=== PATIENT | female | born 1965 | race Caucasian/White ===

== ENCOUNTER 2017-10-29 23:30 | Emergency (ER) | payer MEDICARE, MEDICAID ==
[~2017-10-29] VITALS: Ht 167.6 cm; Wt 90.5 kg
[~2017-10-29 23:30] MED LIST: ALBU8.5H4 IH; BACL10TA2 PO; DILT240C90 PO; DOCU100C23 PO; FLUT16SP INH; HYDR-565 PO; LISI-222 PO; LORA-512 PO; METO50TA16 PO; NORT50CA PO; OMEP20TA5 PO; POLY454P5 PO; RIVA20TA PO
[2017-10-30] MEDS ORDERED: AMOX-101 PO (00:28)
[2017-10-30] MEDS ORDERED: NAPR-1154 PO (00:28)
[2017-10-30] MEDS ORDERED: ketorolac trometh inj. 60 MG/2 ML VIAL IM ONE (00:30)
[2017-10-30 00:45] VITALS: BP 143/100
== END 2017-10-30 00:52 | disposition home or self-care (01) ==
LOC: ER 23:31
DX: M72.2 Plantar fascial fibromatosis (principal); H66.92 Otitis media, unspecified, left ear; G89.29 Other chronic pain; I10 Essential (primary) hypertension; I48.91 Unspecified atrial fibrillation; J45.909 Unspecified asthma, uncomplicated; Z79.899 Other long term (current) drug therapy; Z88.5 Allergy status to narcotic agent; Z88.8 Allergy status to other drugs, medicaments and biological substances
CPT/HCPCS: 96372; 99283; J1885

== ENCOUNTER 2018-01-26 00:20 | Inpatient (IN) | payer MEDICARE, MEDICAID ==
[2018-01-26] VITALS (9 sets, daily range): BP systolic 122–147; BP diastolic 68–97
[~2018-01-26] VITALS: Ht 167.6 cm; Wt 90.9 kg
[~2018-01-26 00:20] MED LIST changes: +NAPR-1154 PO
[2018-01-26 00:49] LABS: BASOPHILS % (AUTO) 0.5 % (0-1); EOSINOPHILS # (AUTO) 0.2 X10'3 (0-0.9); HEMATOCRIT 36.8 % (35.0-45.0); HEMOGLOBIN 11.6 g/dl (12.0-16.0); LYMPHOCYTES % (AUTO) 36.6 % (21-51); MEAN CORPUSCULAR HEMOGLOBIN 19.6 PG (27.0-31.0); MEAN CORPUSCULAR HGB CONC 31.4 % (33.0-36.5); MEAN CORPUSCULAR VOLUME 62.3 FL (78-98); MEAN PLATELET VOLUME 8.7 FL (7.4-10.4); MONOCYTES # (AUTO) 0.4 X10'3 (0-0.9); MONOCYTES % (AUTO) 5.5 % (2-12); NEUTROPHILS # (AUTO) 4.5 X10'3 (1.8-7.7); NEUTROPHILS % (AUTO) 54.4 % (42-75); PLATELET COUNT 136 X10'3 (140-440); RED BLOOD COUNT 5.91 X10'6 (4.20-5.60); RED CELL DISTRIBUTION WIDTH 14.6 % (11.5-14.5); WHITE BLOOD COUNT 8.1 X10'3 (4.5-11.0)
[2018-01-26] MEDS ORDERED: digoxin 250mcg/ml 2ml ampule IV ONE (00:50)
[2018-01-26 01:01] LABS: PARTIAL THROMBOPLASTIN TIME 26 SECONDS (22-32); PROTHROMBIN TIME 10.4 SECONDS (9.0-12.0)
[2018-01-26 01:05] LABS: ALANINE AMINOTRANSFERASE 18 U/L (12-78); ALBUMIN 4.1 G/DL (3.4-5.0); ALBUMIN/GLOBULIN RATIO 1.1 (1.1-1.5); ALKALINE PHOSPHATASE 59 IU/L (46-116); ANION GAP 11 (8-16); ASPARTATE AMINO TRANSFERASE 22 U/L (10-37); BILIRUBIN,TOTAL 0.7 MG/DL (0.1-1.0); BLOOD UREA NITROGEN 9 MG/DL (7-18); BUN/CREATININE RATIO 10.8 (6.6-38.0); CALCIUM 8.7 MG/DL (8.5-10.1); CHLORIDE 105 MMOL/L (99-107); CREATININE 0.83 MG/DL (0.40-0.90); GLUCOSE 125 MG/DL (70-104); POTASSIUM 3.8 MMOL/L (3.5-5.1); SODIUM 143 MMOL/L (135-145); TOTAL CARBON DIOXIDE 26.8 MMOL/L (24-32); TOTAL PROTEIN 7.7 G/DL (6.4-8.2); eGFR 72 ML/MIN
[2018-01-26 01:10] LABS: ANISOCYTOSIS 1+; HYPOCHROMASIA 2+; MICROCYTOSIS 3+; PLATELET ESTIMATE DECREASED; POLYCHROMASIA FEW; TARGET CELLS FEW
[2018-01-26 01:11] LABS: ELLIPTOCYTES FEW; TEAR DROP CELLS FEW
[2018-01-26] MEDS ORDERED: nitroGLYCERIN 0.2mg/hour patch TD ONE (01:35)
[2018-01-26] MEDS ORDERED: docusate sod 100mg capsule PO PRN (01:50)
[2018-01-26] MEDS ORDERED: magnesium 2GM in 50ml NS 50 ML IV PRN (01:55)
[2018-01-26] MEDS ORDERED: ondansetron/PF 4mg/2ml inj IV PRN (01:55)
[2018-01-26] MEDS ORDERED: potassium Cl 20 mEq SR tablet PO PRN ×2 (01:55)
[2018-01-26] MEDS ORDERED: magnesium 4gm in 100ml NS 100 ML IV PRN (01:55)
[2018-01-26] MEDS ORDERED: potassium Cl 40MEQ/NS 500ml 500 ML IV PRN ×2 (01:55)
[2018-01-26] MEDS ORDERED: magnesium hydroxide 30ml (MOM) UD suspension PO PRN (01:55)
[2018-01-26] MEDS ORDERED: mag hydrox/Alum hydrox/simeth 30ml oral suspension PO PRN (01:55)
[2018-01-26] MEDS ORDERED: acetaminophen 325mg tablet PO PRN (01:55)
[2018-01-26] MEDS ORDERED: nitroGLYCERIN 0.4mg SUBLingual tab SL PRN (02:05)
[2018-01-26] MEDS ORDERED: regadenoson 0.4mg/5ml syringe IV ONE ×3 (02:05→09:25)
[2018-01-26] MEDS ORDERED: aminophylline 250mg/10ml inj. IV PRN (02:05)
[2018-01-26] MEDS ORDERED: acetaminophen 325mg tablet PO ONE (03:10)
[2018-01-26 06:45] LABS: CHOL/HDL RATIO 3.5 (0.00-4.99); CHOLESTEROL 133 MG/DL (0-200); HDL CHOLESTEROL 38 MG/DL (35-60); LDL CHOLESTEROL 64 MG/DL (50-100); TRIGLYCERIDES 194 MG/DL (20-135)
[2018-01-26] MEDS ORDERED: pantoprazole 40mg Tablet.DR PO SCH (07:30)
[2018-01-26] MEDS ORDERED: fluticasone nasal spray 16GM bottle NS SCH (08:00)
[2018-01-26] MEDS ORDERED: loratadine 10mg tablet PO SCH (08:00)
[2018-01-26] MEDS ORDERED: K and/or MAG REPLACEMENT MC SCH (08:00)
[2018-01-26] MEDS ORDERED: rivaroxaban 20mg tablet PO SCH (08:00)
[2018-01-26] MEDS ORDERED: diltiazem CD 120mg capsule (once-daily) PO SCH (08:00)
[2018-01-26] MEDS ORDERED: lisinopril 5mg tablet PO SCH (08:00)
[2018-01-26] MEDS ORDERED: polyethylene glycol 3350 17gm powd pack PO SCH (08:00)
[2018-01-26] MEDS ORDERED: baclofen 10mg tablet PO SCH (08:00)
[2018-01-26] MEDS ORDERED: aminophylline inj. 0 ML IV ONE (09:12)
[2018-01-26] MEDS ORDERED: nortriptyline 25mg capsule PO SCH (21:00)
== END 2018-01-26 14:50 | disposition home or self-care (01) | DRG 206 ==
LOC: ER 00:20 → ED HOLD 01:53 → EDBEDREQ 11:37
PROVIDERS: ADMIT Family Medicine; ATTEND Internal Medicine
PROC: 4A02XM4 Measurement of Cardiac Total Activity, External Approach (ICD-10-PCS; principal; 2018-01-26)
PROC: 3E073KZ Introduction of Other Diagnostic Substance into Coronary Artery, Percutaneous Approach (ICD-10-PCS; 2018-01-26)
DX: M94.0 Chondrocostal junction syndrome [Tietze] (principal); I48.91 Unspecified atrial fibrillation; I10 Essential (primary) hypertension; G43.909 Migraine, unspecified, not intractable, without status migrainosus; G89.29 Other chronic pain; J45.909 Unspecified asthma, uncomplicated; Z98.1 Arthrodesis status; Z88.8 Allergy status to other drugs, medicaments and biological substances; Z88.6 Allergy status to analgesic agent; Z79.899 Other long term (current) drug therapy; Z79.01 Long term (current) use of anticoagulants; Z82.49 Family history of ischemic heart disease and other diseases of the circulatory system
CPT/HCPCS: 36415; 71045; 78452; 80053; 80061; 84484; 85025; 85610; 85730; 87070; 93017; 93306; A9500; J0280; J1160; J2405

== ENCOUNTER 2018-02-28 13:59 | Day surgery (SDC) | payer MEDICARE, MEDICAID ==
[2018-02-24 11:42] LABS: BASOPHILS % (AUTO) 0.5 % (0-1); EOSINOPHILS # (AUTO) 0.2 X10'3 (0-0.9); EOSINOPHILS % (AUTO) 3.8 % (0-6); HEMATOCRIT 33.4 % (35.0-45.0); HEMOGLOBIN 10.5 g/dl (12.0-16.0); LYMPHOCYTES # (AUTO) 1.6 X10'3 (1.1-4.8); LYMPHOCYTES % (AUTO) 33.6 % (21-51); MEAN CORPUSCULAR HEMOGLOBIN 19.7 PG (27.0-31.0); MEAN CORPUSCULAR HGB CONC 31.3 % (33.0-36.5); MEAN CORPUSCULAR VOLUME 62.8 FL (78-98); MEAN PLATELET VOLUME 9.3 FL (7.4-10.4); MONOCYTES # (AUTO) 0.2 X10'3 (0-0.9); MONOCYTES % (AUTO) 4.8 % (2-12); NEUTROPHILS # (AUTO) 2.7 X10'3 (1.8-7.7); NEUTROPHILS % (AUTO) 57.3 % (42-75); PLATELET COUNT 132 X10'3 (140-440); RED BLOOD COUNT 5.32 X10'6 (4.20-5.60); RED CELL DISTRIBUTION WIDTH 17.4 % (11.5-14.5); WHITE BLOOD COUNT 4.8 X10'3 (4.5-11.0)
[2018-02-24 11:51] LABS: ALBUMIN 4.1 G/DL (3.4-5.0); ANION GAP 10 (8-16); BLOOD UREA NITROGEN 11 MG/DL (7-18); BUN/CREATININE RATIO 17.2 (6.6-38.0); CALCIUM 8.7 MG/DL (8.5-10.1); CHLORIDE 106 MMOL/L (99-107); CREATININE 0.64 MG/DL (0.40-0.90); GLUCOSE 97 MG/DL (70-104); POTASSIUM 3.9 MMOL/L (3.5-5.1); SODIUM 144 MMOL/L (135-145); TOTAL CARBON DIOXIDE 27.7 MMOL/L (24-32); eGFR > 90 ML/MIN
[2018-02-24 11:52] LABS: INR 1.2 INR; PARTIAL THROMBOPLASTIN TIME 30 SECONDS (22-32); PROTHROMBIN TIME 12.1 SECONDS (9.0-12.0)
[2018-02-24 12:02] LABS: PLATELET ESTIMATE DECREASED
[2018-02-24 12:03] LABS: ANISOCYTOSIS 1+; MICROCYTOSIS 2+
[2018-02-24 12:04] LABS: ELLIPTOCYTES FEW; HYPOCHROMASIA 1+; POLYCHROMASIA FEW; SCHISTOCYTES FEW; TARGET CELLS FEW
[2018-02-28] VITALS (11 sets, daily range): BP systolic 117–146; BP diastolic 65–94
[~2018-02-28] VITALS: Ht 167.6 cm; Wt 92.7 kg
[2018-02-28] MEDS ORDERED: diphenhydrAMINE 25mg capsule PO PRN (14:20)
[2018-02-28] MEDS ORDERED: LORazepam 0.5 MG tablet PO PRN (14:20)
[2018-02-28] MEDS ORDERED: FERR325T28 PO (14:39)
[2018-02-28] MEDS ORDERED: ESTR1PAT96 TOP (14:39)
[2018-02-28] MEDS ORDERED: SUMA25TA35 PO (14:39)
[2018-02-28] MEDS ORDERED: ZOLP5TAB8 PO (14:39)
[2018-02-28] MEDS ORDERED: CYCL1DRO EACHEYE (14:39)
[2018-02-28] MEDS: normal saline 1000ml 1,000 ML IV SCH ×2 (14:54→21:33)
[2018-02-28] MEDS ORDERED: LIDOcaine 1% w/EPI 1:100,000 30ml vial (MDV) ONE (16:26)
[2018-02-28] MEDS ORDERED: iohexol 350MG/ML 100ml bottle IV ONE (16:27)
[2018-02-28] MEDS ORDERED: midazolam 2 mg/2 ml injection ONE ×2 (16:50→17:16)
[2018-02-28] MEDS ORDERED: fentaNYL/PF 50MCG/1 ML 2ML syringe ONE (16:50)
[2018-02-28] MEDS ORDERED: HYDROcodone/acetaminophen 10/325mg tab PO PRN (17:55)
[2018-02-28] MEDS ORDERED: proCHLORperazine 10 MG/2 ml inj IV PRN (17:55)
[2018-02-28] MEDS ORDERED: ondansetron/PF 4mg/2ml inj IV PRN (17:55)
[2018-02-28] MEDS ORDERED: OXAZEpam 15mg capsule PO PRN (17:55)
[2018-02-28] MEDS ORDERED: SUMAtriptan 25 MG tablet PO PRN (20:50)
[2018-02-28] MEDS ORDERED: docusate sod 100mg capsule PO PRN (20:55)
[2018-02-28] MEDS ORDERED: albuterol 2.5 MG/3 ML nebule NEB PRN (20:55)
[2018-02-28] MEDS ORDERED: zolpidem 5mg tablet PO PRN (20:55)
[2018-02-28] MEDS ORDERED: ESTRADIOL TP SCH (21:05)
[2018-02-28] MEDS: baclofen 10mg tablet PO SCH (21:36)
[2018-02-28] MEDS: HYDROcodone/acetaminophen 5mg/325mg tablet PO PRN (21:37)
[2018-03-01 03:00] VITALS: BP 131/80
[2018-03-01 06:00] VITALS: BP 166/106
[2018-03-01] MEDS: HYDROcodone/acetaminophen 5mg/325mg tablet PO PRN (06:51)
[2018-03-01] MEDS: baclofen 10mg tablet PO SCH (07:04)
[2018-03-01] MEDS ORDERED: pantoprazole 40mg Tablet.DR PO SCH (07:30)
[2018-03-01] MEDS ORDERED: lisinopril 10 MG tablet PO SCH (08:00)
[2018-03-01] MEDS ORDERED: polyethylene glycol 3350 17gm powd pack PO SCH (08:00)
[2018-03-01] MEDS ORDERED: metoprolol tartrate 50mg tablet PO SCH (08:00)
[2018-03-01] MEDS ORDERED: ferrous sulfate 325mg tablet PO SCH (08:00)
[2018-03-01] MEDS ORDERED: loratadine 10mg tablet PO SCH (08:00)
[2018-03-01] MEDS ORDERED: cycloSPORINE 0.05% ophthalmic emulsion EACHEYE SCH (08:00)
[2018-03-01] MEDS ORDERED: fluticasone nasal spray 16GM bottle NS SCH (08:00)
[2018-03-01] MEDS: normal saline 1000ml 1,000 ML IV SCH (10:20)
[2018-03-01] MEDS ORDERED: nortriptyline 25mg capsule PO SCH (21:00)
== END 2018-03-01 12:18 | disposition home or self-care (01) ==
LOC: SSTAY O 13:59 → PCU 3S 20:55 → SSTAY O 03-01 12:18
PROVIDERS: ATTEND Internal Medicine Interventional Cardiology
DX: I25.118 Atherosclerotic heart disease of native coronary artery with other forms of angina pectoris (principal); E78.5 Hyperlipidemia, unspecified; I48.0 Paroxysmal atrial fibrillation; I11.0 Hypertensive heart disease with heart failure; I50.32 Chronic diastolic (congestive) heart failure; J45.998 Other asthma; E66.3 Overweight; K21.9 Gastro-esophageal reflux disease without esophagitis; B19.20 Unspecified viral hepatitis C without hepatic coma; M19.90 Unspecified osteoarthritis, unspecified site; Z68.33 Body mass index [BMI] 33.0-33.9, adult; Z88.6 Allergy status to analgesic agent; Z79.01 Long term (current) use of anticoagulants; Z90.710 Acquired absence of both cervix and uterus; Z88.2 Allergy status to sulfonamides; Z98.890 Other specified postprocedural states; Z88.8 Allergy status to other drugs, medicaments and biological substances; Z79.899 Other long term (current) drug therapy
CPT/HCPCS: 36415; 80048; 85025; 85610; 85730; 87070; 93005; 93458; 99152; 99153; A6257; C1769; J1644; J2250; J2405; J3010; J3490; J7030; Q0163; Q9967; A4620

== ENCOUNTER → 2018-03-09 | Emergency (ER) | payer MEDICARE, MEDICAID ==
[~2018-03-09] VITALS: Ht 167.6 cm; Wt 100.0 kg
[~2018-03-09] MED LIST changes: +CYCL1DRO EACHEYE; -DILT240C90 PO; +ESTR1PAT96 TOP; +FERR325T28 PO; +HYDR-3965 PO; -HYDR-565 PO; +HYDROcodone/acetaminophen 5mg/325mg tablet PO ONE; -NAPR-1154 PO; +SUMA25TA35 PO; +ZOLP5TAB8 PO
[2018-03-09 22:07] VITALS: BP 142/90
== END | disposition home or self-care (01) ==
LOC: ER 17:21
DX: R07.9 Chest pain, unspecified (principal); I48.91 Unspecified atrial fibrillation; J45.909 Unspecified asthma, uncomplicated; I10 Essential (primary) hypertension; G89.29 Other chronic pain; Z88.2 Allergy status to sulfonamides; Z79.899 Other long term (current) drug therapy
CPT/HCPCS: 36415; 71045; 84484; 93005; 99285

== ENCOUNTER 2018-05-10 23:59 | Emergency (ER) | payer MEDICARE, MEDICAID ==
[~2018-05-10] VITALS: Ht 170.2 cm; Wt 100.0 kg
[~2018-05-10 23:59] MED LIST changes: -HYDR-3965 PO; -HYDROcodone/acetaminophen 5mg/325mg tablet PO ONE
[2018-05-11 01:13] VITALS: BP 139/90
[2018-05-11] MEDS ORDERED: MUPI22OI30 TOP (02:25)
== END 2018-05-11 03:13 | disposition home or self-care (01) ==
LOC: ER 23:59
DX: L91.8 Other hypertrophic disorders of the skin (principal); L08.9 Local infection of the skin and subcutaneous tissue, unspecified; G43.909 Migraine, unspecified, not intractable, without status migrainosus; I48.91 Unspecified atrial fibrillation; I10 Essential (primary) hypertension; J45.909 Unspecified asthma, uncomplicated; G89.29 Other chronic pain; Z98.890 Other specified postprocedural states; Z88.2 Allergy status to sulfonamides; Z79.899 Other long term (current) drug therapy
CPT/HCPCS: 99283

== ENCOUNTER 2018-06-18 15:26 | Emergency (ER) | payer MEDICARE, MEDICAID ==
[~2018-06-18] VITALS: Ht 167.6 cm; Wt 95.6 kg
[2018-06-18 15:31] VITALS: BP 162/93
[2018-06-18] MEDS ORDERED: SUMAtriptan succ. 6 MG/0.5ml vial SQ ONE (15:55)
[2018-06-18] MEDS ORDERED: LORazepam 2 mg/ml vial IM ONE (16:05)
== END 2018-06-18 16:47 | disposition home or self-care (01) ==
LOC: ER 15:26
DX: G43.909 Migraine, unspecified, not intractable, without status migrainosus (principal); I10 Essential (primary) hypertension; J45.909 Unspecified asthma, uncomplicated; I48.91 Unspecified atrial fibrillation; Z88.2 Allergy status to sulfonamides
CPT/HCPCS: 96372; 99284; J2060; J3030

== ENCOUNTER 2018-06-26 17:57 | Emergency (ER) | payer MEDICARE, MEDICAID ==
[~2018-06-26] VITALS: Ht 167.6 cm; Wt 87.3 kg
[~2018-06-26 17:57] MED LIST changes: +DOCU-274 PO; -DOCU100C23 PO
[2018-06-26 18:03] VITALS: BP 125/80
[2018-06-26] MEDS ORDERED: HYDR-3965 PO (19:40)
[2018-06-26] MEDS ORDERED: ibuprofen 200mg tablet PO ONE (19:45)
== END 2018-06-26 20:02 | disposition home or self-care (01) ==
LOC: ER 17:58
DX: M25.532 Pain in left wrist (principal); G43.909 Migraine, unspecified, not intractable, without status migrainosus; I10 Essential (primary) hypertension; I48.91 Unspecified atrial fibrillation; J45.909 Unspecified asthma, uncomplicated; G89.29 Other chronic pain; Z88.2 Allergy status to sulfonamides; Z79.899 Other long term (current) drug therapy
CPT/HCPCS: 29125; 99283

== ENCOUNTER 2018-07-09 00:16 | Emergency (ER) | payer MEDICARE, MEDICAID ==
[~2018-07-09] VITALS: Ht 170.2 cm; Wt 96.4 kg
[~2018-07-09 00:16] MED LIST changes: +HYDR-3965 PO
[2018-07-09] MEDS ORDERED: ondansetron/PF 4mg/2ml inj IV ONE (00:40)
[2018-07-09] MEDS ORDERED: meclizine 12.5mg tablet PO ONE (00:40)
[2018-07-09] MEDS ORDERED: normal saline 1000ml 1,000 ML IV ONE (00:40)
[2018-07-09 00:44] LABS: BASOPHILS % (AUTO) 0.4 % (0-1); EOSINOPHILS # (AUTO) 0.2 X10'3 (0-0.9); EOSINOPHILS % (AUTO) 2.4 % (0-6); HEMOGLOBIN 10.3 g/dl (12.0-16.0); LYMPHOCYTES # (AUTO) 2.5 X10'3 (1.1-4.8); LYMPHOCYTES % (AUTO) 38.9 % (21-51); MEAN CORPUSCULAR HEMOGLOBIN 20.2 PG (27.0-31.0); MEAN CORPUSCULAR HGB CONC 32.1 % (33.0-36.5); MEAN CORPUSCULAR VOLUME 62.9 FL (78-98); MEAN PLATELET VOLUME 8.9 FL (7.4-10.4); MONOCYTES # (AUTO) 0.4 X10'3 (0-0.9); MONOCYTES % (AUTO) 5.9 % (2-12); NEUTROPHILS # (AUTO) 3.4 X10'3 (1.8-7.7); NEUTROPHILS % (AUTO) 52.4 % (42-75); PLATELET COUNT 150 X10'3 (140-440); RED BLOOD COUNT 5.09 X10'6 (4.20-5.60); RED CELL DISTRIBUTION WIDTH 16.5 % (11.5-14.5); WHITE BLOOD COUNT 6.5 X10'3 (4.5-11.0)
[2018-07-09 00:53] LABS: PARTIAL THROMBOPLASTIN TIME 25 SECONDS (22-32); PROTHROMBIN TIME 10.6 SECONDS (9.0-12.0)
[2018-07-09 00:58] LABS: ALANINE AMINOTRANSFERASE 22 U/L (12-78); ALBUMIN 2.7 G/DL (3.4-5.0); ALBUMIN/GLOBULIN RATIO 0.6 (1.1-1.5); ALKALINE PHOSPHATASE 64 IU/L (46-116); ANION GAP 9 (8-16); ASPARTATE AMINO TRANSFERASE 20 U/L (10-37); BILIRUBIN,TOTAL 1.1 MG/DL (0.1-1.0); BLOOD UREA NITROGEN 15 MG/DL (7-18); BUN/CREATININE RATIO 21.7 (6.6-38.0); CALCIUM 8.6 MG/DL (8.5-10.1); CHLORIDE 104 MMOL/L (99-107); CREATININE 0.69 MG/DL (0.40-0.90); GLUCOSE 108 MG/DL (70-104); POTASSIUM 3.8 MMOL/L (3.5-5.1); SODIUM 142 MMOL/L (135-145); TOTAL CARBON DIOXIDE 28.7 MMOL/L (24-32); TOTAL PROTEIN 6.9 G/DL (6.4-8.2); eGFR 89 ML/MIN
[2018-07-09] MEDS ORDERED: MECL-111 PO (02:13)
[2018-07-09 02:32] VITALS: BP 149/81
[2018-07-09 04:02] LABS: ANISOCYTOSIS 1+; PLATELET ESTIMATE DECREASED
[2018-07-09 04:03] LABS: ELLIPTOCYTES FEW; MICROCYTOSIS 2+; POLYCHROMASIA FEW; SCHISTOCYTES FEW; TARGET CELLS FEW; TEAR DROP CELLS FEW
== END 2018-07-09 02:34 | disposition home or self-care (01) ==
LOC: ER 00:16
DX: R42 Dizziness and giddiness (principal); R07.89 Other chest pain; I48.91 Unspecified atrial fibrillation; I10 Essential (primary) hypertension; J45.909 Unspecified asthma, uncomplicated; G89.29 Other chronic pain; Z98.890 Other specified postprocedural states; Z88.2 Allergy status to sulfonamides; Z79.899 Other long term (current) drug therapy
CPT/HCPCS: 36415; 71045; 80053; 84484; 85025; 85610; 85730; 93005; 96361; 96374; 99285; J2405; J7030; J8597

== ENCOUNTER 2018-09-29 23:35 | Emergency (ER) | payer MEDICARE, MEDICAID ==
[~2018-09-29] VITALS: Ht 167.6 cm; Wt 76.0 kg
[~2018-09-29 23:35] MED LIST changes: -HYDR-3965 PO; +MECL-111 PO
[2018-09-30] MEDS ORDERED: LEVO750T21 PO (00:18)
[2018-09-30] MEDS ORDERED: acetaminophen 325mg tablet PO ONE (00:20)
[2018-09-30] MEDS ORDERED: ipratropium/albuterol 3ml nebule NEB ONE (00:20)
[2018-09-30] MEDS ORDERED: levoFLOXACIN 750MG TABLET PO ONE (00:20)
[2018-09-30] MEDS ORDERED: ibuprofen tablet 400 MG TABLET PO ONE (00:20)
[2018-09-30] MEDS ORDERED: ondansetron 4mg rapidly disintigrating tab PO ONE (00:20)
[2018-09-30 00:41] VITALS: BP 116/75
== END 2018-09-30 00:45 | disposition home or self-care (01) ==
LOC: ER 23:36
DX: H66.92 Otitis media, unspecified, left ear (principal); J06.9 Acute upper respiratory infection, unspecified; G43.909 Migraine, unspecified, not intractable, without status migrainosus; I48.91 Unspecified atrial fibrillation; I10 Essential (primary) hypertension; G89.29 Other chronic pain; J45.909 Unspecified asthma, uncomplicated; Z98.890 Other specified postprocedural states; Z88.2 Allergy status to sulfonamides; Z79.2 Long term (current) use of antibiotics; Z79.899 Other long term (current) drug therapy
CPT/HCPCS: 94640; 94760; 99284

== ENCOUNTER 2018-12-01 11:08 | Emergency (ER) | payer MEDICARE, MEDICAID ==
[2018-12-01 12:00] VITALS: BP 134/85
== END 2018-12-01 14:08 | disposition home or self-care (01) ==
LOC: ER 11:08
DX: I48.91 Unspecified atrial fibrillation (principal); G47.30 Sleep apnea, unspecified; G43.909 Migraine, unspecified, not intractable, without status migrainosus; I10 Essential (primary) hypertension; J45.909 Unspecified asthma, uncomplicated; G89.29 Other chronic pain; Z98.890 Other specified postprocedural states; Z88.2 Allergy status to sulfonamides; Z79.899 Other long term (current) drug therapy
CPT/HCPCS: 93005; 99283

== ENCOUNTER 2019-03-01 11:16 | Emergency (ER) | payer MEDICARE, MEDICAID ==
[~2019-03-01] VITALS: Ht 167.6 cm; Wt 98.0 kg
[2019-03-01] MEDS ORDERED: diphenhydrAMINE 50 mg/ml inj IV ONE (12:45)
[2019-03-01] MEDS ORDERED: metoclopramide 5 mg/ml inj IV ONE (12:45)
[2019-03-01] MEDS ORDERED: ketorolac trometh. 30mg/ml inj. IV ONE (12:45)
[2019-03-01] MEDS ORDERED: normal saline 1000ML IV soln IVB ONE (12:45)
[2019-03-01] MEDS ORDERED: ondansetron/PF 4mg/2ml inj IV ONE (13:45)
[2019-03-01] MEDS ORDERED: morphine 4 MG/ML inj SYRINge IV ONE (13:45)
[2019-03-01 14:00] VITALS: BP 124/76
== END 2019-03-01 14:45 | disposition home or self-care (01) ==
LOC: ER 11:17
DX: G43.909 Migraine, unspecified, not intractable, without status migrainosus (principal); I48.91 Unspecified atrial fibrillation; I10 Essential (primary) hypertension; J45.909 Unspecified asthma, uncomplicated; G89.29 Other chronic pain; Z98.890 Other specified postprocedural states; Z88.2 Allergy status to sulfonamides; Z88.6 Allergy status to analgesic agent; Z88.5 Allergy status to narcotic agent; Z79.899 Other long term (current) drug therapy
CPT/HCPCS: 96374; 96375; 99283; J1200; J1885; J2270; J2405; J2765; J7030

== ENCOUNTER 2019-05-11 14:24 | Emergency (ER) | payer MEDICARE, MEDICAID ==
[~2019-05-11] VITALS: Ht 167.6 cm; Wt 100.0 kg
[~2019-05-11 14:24] MED LIST changes: -BACL10TA2 PO; +CETI10TA14 PO; +CYAN-51 PO; -CYCL1DRO EACHEYE; -ESTR1PAT96 TOP; -FERR325T28 PO; -FLUT16SP INH; +GABA-532 PO; -LORA-512 PO; +MAGN400T52 PO; -NORT50CA PO; +PANT-47 PO; -POLY454P5 PO; +SUMA100T16 PO; +TOPI25TA49 PO; -ZOLP5TAB8 PO
[2019-05-11] MEDS ORDERED: LORazepam 2 mg/ml vial IV ONE (15:40)
[2019-05-11] MEDS ORDERED: ondansetron/PF 4mg/2ml inj IV ONE (15:40)
[2019-05-11] MEDS ORDERED: normal saline 1000ML IV soln IVB ONE (15:40)
[2019-05-11] MEDS ORDERED: meclizine 12.5mg tablet PO ONE (15:40)
[2019-05-11 16:04] LABS: BASOPHILS % (AUTO) 0.6 % (0-1); EOSINOPHILS # (AUTO) 0.2 X10'3 (0-0.9); EOSINOPHILS % (AUTO) 2.6 % (0-6); HEMATOCRIT 34.3 % (35.0-45.0); HEMOGLOBIN 10.8 g/dl (12.0-16.0); LYMPHOCYTES % (AUTO) 33.5 % (21-51); MEAN CORPUSCULAR HEMOGLOBIN 19.7 PG (27.0-31.0); MEAN CORPUSCULAR HGB CONC 31.4 g/dL (33.0-36.5); MEAN CORPUSCULAR VOLUME 62.7 FL (78-98); MEAN PLATELET VOLUME 9.4 FL (7.4-10.4); MONOCYTES # (AUTO) 0.3 X10'3 (0-0.9); MONOCYTES % (AUTO) 5.4 % (2-12); NEUTROPHILS # (AUTO) 3.4 X10'3 (1.8-7.7); NEUTROPHILS % (AUTO) 57.9 % (42-75); PLATELET COUNT 150 X10'3 (140-440); RED BLOOD COUNT 5.47 X10'6 (4.20-5.60); RED CELL DISTRIBUTION WIDTH 15.8 % (11.5-14.5); WHITE BLOOD COUNT 5.8 X10'3 (4.5-11.0)
[2019-05-11 16:10] LABS: ALANINE AMINOTRANSFERASE 23 U/L (12-78); ALBUMIN 4.3 G/DL (3.4-5.0); ALBUMIN/GLOBULIN RATIO 1.2 (1.1-1.5); ALKALINE PHOSPHATASE 58 IU/L (46-116); ANION GAP 10 (8-16); ASPARTATE AMINO TRANSFERASE 15 U/L (10-37); BLOOD UREA NITROGEN 13 MG/DL (7-18); BUN/CREATININE RATIO 18.8 (6.6-38.0); CALCIUM 8.7 MG/DL (8.5-10.1); CHLORIDE 108 MMOL/L (99-107); CREATININE 0.69 MG/DL (0.40-0.90); GLUCOSE 93 MG/DL (70-104); POTASSIUM 3.9 MMOL/L (3.5-5.1); SODIUM 142 MMOL/L (135-145); TOTAL CARBON DIOXIDE 24.4 MMOL/L (24-32); TOTAL PROTEIN 7.8 G/DL (6.4-8.2); eGFR 88 ML/MIN
[2019-05-11 16:13] VITALS: BP 131/84
--- NOTE | 2019-05-11 16:39 | NUR ---
SYLWIA Hayes aware of pt's inability to walk without becoming unstable on her feet. pt states she feels dizzy. will attempt again later. pt looks better than earlier and is resting on the gurney.
[2019-05-11] MEDS ORDERED: MECL-111 PO (17:07)
[2019-05-11 18:00] LABS: CLARITY,URINE SLIGHTLY CLOUDY (Clear); COLOR,URINE YELLOW (Yellow); GLUCOSE, URINE NEGATIVE (Neg); KETONES,URINE NEGATIVE (Neg); LEUKOCYTE ESTERASE ,URINE TRACE (Neg); NITRITES, URINE NEGATIVE (Neg); OCCULT BLOOD,URINE NEGATIVE (Neg); PROTEIN,URINE NEGATIVE (Neg); UROBILINOGEN,URINE 0.2 E.U/dL (0.2-1.0)
[2019-05-11 18:09] LABS: UA COLLECTION TYPE CLN CATCH MIDSTREAM
[2019-05-11 18:12] LABS: BACTERIA,URINE 3+ /HPF (Neg); RBC,URINE NONE SEEN /HPF (0-2); SQUAMOUS EPITHELIAL CELL,UR MANY /LPF (FEW); WBC,URINE 0-4 /HPF (0-4)
[2019-05-11 18:39] LABS: PLATELET ESTIMATE NORMAL
[2019-05-11 18:40] LABS: ANISOCYTOSIS 1+; ELLIPTOCYTES 1+; MICROCYTOSIS 2+; POLYCHROMASIA 1+; SCHISTOCYTES FEW; TARGET CELLS FEW; TEAR DROP CELLS FEW
== END 2019-05-11 17:25 | disposition home or self-care (01) ==
LOC: ER 14:24
DX: H81.399 Other peripheral vertigo, unspecified ear (principal); G43.909 Migraine, unspecified, not intractable, without status migrainosus; I48.91 Unspecified atrial fibrillation; I10 Essential (primary) hypertension; J45.909 Unspecified asthma, uncomplicated; G89.29 Other chronic pain; Z88.2 Allergy status to sulfonamides; Z88.8 Allergy status to other drugs, medicaments and biological substances; Z79.899 Other long term (current) drug therapy
CPT/HCPCS: 36415; 80053; 81001; 82948; 85025; 93005; 96374; 96375; 99284; J2060; J2405; J8597; J7030

== ENCOUNTER 2019-08-03 12:47 | Emergency (ER) | payer MEDICARE, MEDICAID ==
[~2019-08-03] VITALS: Ht 165.1 cm; Wt 105.0 kg
[2019-08-03] MEDS ORDERED: morphine 4 MG/ML inj SYRINge IV PRN (13:05)
[2019-08-03] MEDS ORDERED: metoclopramide 5 mg/ml inj IV ONE (13:05)
[2019-08-03] MEDS ORDERED: normal saline 1000ML IV soln IVB ONE ×2 (13:05→14:20)
[2019-08-03] MEDS ORDERED: diphenhydrAMINE 50 mg/ml inj IV ONE (13:05)
[2019-08-03 13:35] LABS: BASOPHILS % (AUTO) 0.4 % (0-1); EOSINOPHILS # (AUTO) 0.1 X10'3 (0-0.9); EOSINOPHILS % (AUTO) 2.5 % (0-6); HEMATOCRIT 33.4 % (35.0-45.0); HEMOGLOBIN 10.5 g/dl (12.0-16.0); LYMPHOCYTES # (AUTO) 1.9 X10'3 (1.1-4.8); LYMPHOCYTES % (AUTO) 32.4 % (21-51); MEAN CORPUSCULAR HEMOGLOBIN 19.8 PG (27.0-31.0); MEAN CORPUSCULAR HGB CONC 31.5 g/dL (33.0-36.5); MEAN PLATELET VOLUME 8.9 FL (7.4-10.4); MONOCYTES # (AUTO) 0.3 X10'3 (0-0.9); NEUTROPHILS # (AUTO) 3.5 X10'3 (1.8-7.7); NEUTROPHILS % (AUTO) 59.7 % (42-75); PLATELET COUNT 140 X10'3 (140-440); RED BLOOD COUNT 5.31 X10'6 (4.20-5.60); RED CELL DISTRIBUTION WIDTH 15.8 % (11.5-14.5); WHITE BLOOD COUNT 5.9 X10'3 (4.5-11.0)
[2019-08-03 13:42] LABS: ALANINE AMINOTRANSFERASE 23 U/L (12-78); ALBUMIN 4.2 G/DL (3.4-5.0); ALBUMIN/GLOBULIN RATIO 1.1 (1.1-1.5); ALKALINE PHOSPHATASE 55 IU/L (46-116); ANION GAP 10 (8-16); ASPARTATE AMINO TRANSFERASE 18 U/L (10-37); BILIRUBIN,TOTAL 0.7 MG/DL (0.1-1.0); BLOOD UREA NITROGEN 15 MG/DL (7-18); BUN/CREATININE RATIO 20.5 (6.6-38.0); CALCIUM 8.9 MG/DL (8.5-10.1); CHLORIDE 108 MMOL/L (99-107); CREATININE 0.73 MG/DL (0.40-0.90); GLUCOSE 104 MG/DL (70-104); POTASSIUM 3.8 MMOL/L (3.5-5.1); SODIUM 143 MMOL/L (135-145); TOTAL CARBON DIOXIDE 24.6 MMOL/L (24-32); TOTAL PROTEIN 7.9 G/DL (6.4-8.2); eGFR 83 ML/MIN
[2019-08-03 14:07] LABS: PLATELET ESTIMATE NORMAL
[2019-08-03 14:08] LABS: MICROCYTOSIS 2+
[2019-08-03 14:09] LABS: ELLIPTOCYTES 1+; POLYCHROMASIA FEW
[2019-08-03 16:06] LABS: CLARITY,URINE SLIGHTLY CLOUDY (Clear); COLOR,URINE STRAW (Yellow); GLUCOSE, URINE NEGATIVE (Neg); KETONES,URINE NEGATIVE (Neg); LEUKOCYTE ESTERASE ,URINE TRACE (Neg); NITRITES, URINE NEGATIVE (Neg); OCCULT BLOOD,URINE NEGATIVE (Neg); PH,URINE 5.5 (4.8-8.0); PROTEIN,URINE NEGATIVE (Neg); UROBILINOGEN,URINE 0.2 E.U/dL (0.2-1.0)
[2019-08-03 16:13] LABS: UA COLLECTION TYPE CLN CATCH MIDSTREAM
[2019-08-03 16:15] LABS: SQUAMOUS EPITHELIAL CELL,UR FEW /LPF (FEW)
[2019-08-03 16:17] LABS: AMORPHOUS URATES 2+; BACTERIA,URINE 1+ /HPF (Neg); RBC,URINE 0-2 /HPF (0-2)
[2019-08-03 16:45] VITALS: BP 107/71
== END 2019-08-03 17:07 | disposition home or self-care (01) ==
LOC: ER 12:47
DX: G43.909 Migraine, unspecified, not intractable, without status migrainosus (principal); I48.91 Unspecified atrial fibrillation; J45.909 Unspecified asthma, uncomplicated; G89.29 Other chronic pain; I10 Essential (primary) hypertension; Z86.69 Personal history of other diseases of the nervous system and sense organs; Z86.73 Personal history of transient ischemic attack (TIA), and cerebral infarction without residual deficits; Z98.890 Other specified postprocedural states; Z88.2 Allergy status to sulfonamides; Z88.6 Allergy status to analgesic agent; Z88.5 Allergy status to narcotic agent; Z88.8 Allergy status to other drugs, medicaments and biological substances; Z79.899 Other long term (current) drug therapy
CPT/HCPCS: 36415; 70450; 80053; 81001; 85025; 87088; 96374; 96375; 99284; J1200; J2765; J7030

== ENCOUNTER 2019-08-27 14:01 | Emergency (ER) | payer MEDICARE, MEDICAID ==
[~2019-08-27] VITALS: Ht 167.6 cm; Wt 90.9 kg
[2019-08-27 14:04] VITALS: BP 122/76
[2019-08-27] MEDS ORDERED: ALBU8HFA PO (16:27)
[2019-08-27] MEDS ORDERED: AZIT-63 PO (16:27)
[2019-08-27] MEDS ORDERED: GUAI600T45 PO (16:27)
== END 2019-08-27 16:33 | disposition home or self-care (01) ==
LOC: ER 14:01
DX: J20.9 Acute bronchitis, unspecified (principal); G43.909 Migraine, unspecified, not intractable, without status migrainosus; I48.91 Unspecified atrial fibrillation; I10 Essential (primary) hypertension; J45.909 Unspecified asthma, uncomplicated; G89.29 Other chronic pain; Z86.73 Personal history of transient ischemic attack (TIA), and cerebral infarction without residual deficits; Z98.890 Other specified postprocedural states; Z88.2 Allergy status to sulfonamides; Z88.6 Allergy status to analgesic agent; Z88.5 Allergy status to narcotic agent; Z79.2 Long term (current) use of antibiotics; Z79.899 Other long term (current) drug therapy
CPT/HCPCS: 99283

== ENCOUNTER 2019-09-19 16:42 | Emergency (ER) | payer MEDICARE, MEDICAID ==
[~2019-09-19] VITALS: Ht 167.6 cm; Wt 95.0 kg
[~2019-09-19 16:42] MED LIST changes: +ALBU8HFA PO; +GUAI600T45 PO
[2019-09-19 16:52] VITALS: BP 122/74
[2019-09-19] MEDS ORDERED: TAM75C PO (19:39)
== END 2019-09-19 19:50 | disposition home or self-care (01) ==
LOC: ER 16:42
DX: B34.9 Viral infection, unspecified (principal); R06.02 Shortness of breath; G43.909 Migraine, unspecified, not intractable, without status migrainosus; I48.91 Unspecified atrial fibrillation; I10 Essential (primary) hypertension; G89.29 Other chronic pain; J45.909 Unspecified asthma, uncomplicated; Z86.2 Personal history of diseases of the blood and blood-forming organs and certain disorders involving the immune mechanism; Z98.890 Other specified postprocedural states; Z88.5 Allergy status to narcotic agent; Z88.2 Allergy status to sulfonamides; Z79.899 Other long term (current) drug therapy
CPT/HCPCS: 71045; 87502; 87503; 99284

== ENCOUNTER 2020-02-17 11:27 | Emergency (ER) | payer MEDICARE, MEDICAID ==
[~2020-02-17] VITALS: Ht 165.1 cm; Wt 91.0 kg
[~2020-02-17 11:27] MED LIST changes: -ALBU8HFA PO; -MECL-111 PO; +MECL-159 PO
[2020-02-17 11:28] VITALS: BP 137/85
[2020-02-17 11:46] LABS: CLARITY,URINE SLIGHTLY CLOUDY (Clear); COLOR,URINE YELLOW (Yellow); GLUCOSE, URINE NEGATIVE (Neg); KETONES,URINE NEGATIVE (Neg); LEUKOCYTE ESTERASE ,URINE MODERATE (Neg); NITRITES, URINE NEGATIVE (Neg); OCCULT BLOOD,URINE NEGATIVE (Neg); PROTEIN,URINE NEGATIVE (Neg)
[2020-02-17 11:51] LABS: UA COLLECTION TYPE CLN CATCH MIDSTREAM
[2020-02-17 11:52] LABS: BACTERIA,URINE FEW /HPF (Neg); MUCUS STRANDS FEW /LPF (Neg); RBC,URINE 0-2 /HPF (0-2); SQUAMOUS EPITHELIAL CELL,UR MANY /LPF (FEW); WBC,URINE 0-4 /HPF (0-4)
[2020-02-17] MEDS ORDERED: NEOM10DR45 LEFT EAR (12:16)
== END 2020-02-17 12:30 | disposition home or self-care (01) ==
LOC: ER 11:28
DX: H60.92 Unspecified otitis externa, left ear (principal); G43.909 Migraine, unspecified, not intractable, without status migrainosus; I48.91 Unspecified atrial fibrillation; I10 Essential (primary) hypertension; J45.909 Unspecified asthma, uncomplicated; G89.29 Other chronic pain; F17.200 Nicotine dependence, unspecified, uncomplicated; Z86.73 Personal history of transient ischemic attack (TIA), and cerebral infarction without residual deficits; Z98.890 Other specified postprocedural states; Z79.899 Other long term (current) drug therapy; Z88.2 Allergy status to sulfonamides; Z88.6 Allergy status to analgesic agent; Z88.8 Allergy status to other drugs, medicaments and biological substances
CPT/HCPCS: 81001; 99283

== ENCOUNTER 2020-07-08 11:19 | Emergency (ER) | payer MEDICARE, MEDICAID ==
[~2020-07-08] VITALS: Ht 167.6 cm; Wt 92.0 kg
[2020-07-08 11:34] VITALS: BP 138/91
[2020-07-08] MEDS ORDERED: dexamethasone sod phosphate 10mg/ml inj IV STA (12:34)
[2020-07-08] MEDS ORDERED: LORazepam 2 mg/ml vial IV ONE (12:35)
[2020-07-08] MEDS ORDERED: normal saline 1000ML IV soln IVB ONE (12:35)
[2020-07-08] MEDS ORDERED: metoclopramide 5 mg/ml inj IV ONE (12:35)
[2020-07-08] MEDS: ketorolac trometh. 30mg/ml inj. IV ONE ×2 (12:58→13:18)
== END 2020-07-08 13:51 | disposition home or self-care (01) ==
LOC: ER 11:20
DX: G43.909 Migraine, unspecified, not intractable, without status migrainosus (principal); I48.91 Unspecified atrial fibrillation; I10 Essential (primary) hypertension; J45.909 Unspecified asthma, uncomplicated; G89.29 Other chronic pain; Z98.890 Other specified postprocedural states; Z86.73 Personal history of transient ischemic attack (TIA), and cerebral infarction without residual deficits; Z88.2 Allergy status to sulfonamides; Z88.5 Allergy status to narcotic agent; Z88.8 Allergy status to other drugs, medicaments and biological substances; Z79.01 Long term (current) use of anticoagulants; Z79.899 Other long term (current) drug therapy
CPT/HCPCS: 96361; 96374; 96375; 99284; J1100; J1885; J2060; J2765; J7030

== ENCOUNTER 2021-02-18 19:31 | Emergency (ER) | payer MEDICARE, MEDICAID ==
[~2021-02-18] VITALS: Ht 167.6 cm; Wt 90.9 kg
[2021-02-18 19:40] VITALS: BP 151/81
[2021-02-18] MEDS ORDERED: IBUP-1984 PO (21:38)
[2021-02-18] MEDS ORDERED: AMOX-422 PO (21:38)
== END 2021-02-18 22:07 | disposition home or self-care (01) ==
LOC: ER 19:31
DX: H66.93 Otitis media, unspecified, bilateral (principal); G43.909 Migraine, unspecified, not intractable, without status migrainosus; I48.91 Unspecified atrial fibrillation; I10 Essential (primary) hypertension; G89.29 Other chronic pain; J45.909 Unspecified asthma, uncomplicated; Z98.890 Other specified postprocedural states; Z86.2 Personal history of diseases of the blood and blood-forming organs and certain disorders involving the immune mechanism; Z86.73 Personal history of transient ischemic attack (TIA), and cerebral infarction without residual deficits; Z79.899 Other long term (current) drug therapy; Z79.2 Long term (current) use of antibiotics
CPT/HCPCS: 99283

== ENCOUNTER 2021-03-28 23:06 | Emergency (ER) | payer MEDICARE, MEDICAID ==
[~2021-03-28] VITALS: Ht 167.6 cm; Wt 90.9 kg
[2021-03-28 23:10] VITALS: BP 142/84
[2021-03-28] MEDS ORDERED: PENI250T2 PO (23:19)
== END 2021-03-28 23:30 | disposition home or self-care (01) ==
LOC: ER 23:07
DX: K04.7 Periapical abscess without sinus (principal); G43.909 Migraine, unspecified, not intractable, without status migrainosus; J45.909 Unspecified asthma, uncomplicated; D64.9 Anemia, unspecified; I11.9 Hypertensive heart disease without heart failure; Z88.2 Allergy status to sulfonamides; Z88.6 Allergy status to analgesic agent; Z88.5 Allergy status to narcotic agent; Z88.8 Allergy status to other drugs, medicaments and biological substances
CPT/HCPCS: 99283

== ENCOUNTER 2021-10-17 10:36 | Emergency (ER) | payer MEDICARE, MEDICAID ==
[~2021-10-17] VITALS: Ht 167.6 cm; Wt 80.9 kg
[2021-10-17 12:39] LABS: BASOPHILS % (AUTO) 0.4 % (0-1); EOSINOPHILS # (AUTO) 0.2 X10'3 (0-0.9); EOSINOPHILS % (AUTO) 3.8 % (0-6); HEMATOCRIT 35.5 % (35.0-45.0); HEMOGLOBIN 11.2 g/dl (12.0-16.0); LYMPHOCYTES # (AUTO) 1.5 X10'3 (1.1-4.8); MEAN CORPUSCULAR HEMOGLOBIN 19.3 PG (27.0-31.0); MEAN CORPUSCULAR HGB CONC 31.7 g/dL (33.0-36.5); MONOCYTES # (AUTO) 0.5 X10'3 (0-0.9); MONOCYTES % (AUTO) 8.2 % (2-12); NEUTROPHILS # (AUTO) 3.6 X10'3 (1.8-7.7); NEUTROPHILS % (AUTO) 61.6 % (42-75); PLATELET COUNT 167 X10'3 (140-440); RED BLOOD COUNT 5.83 X10'6 (4.20-5.60); RED CELL DISTRIBUTION WIDTH 15.4 % (11.5-14.5); WHITE BLOOD COUNT 5.8 X10'3 (4.5-11.0)
[2021-10-17 12:52] LABS: ALANINE AMINOTRANSFERASE 18 U/L (12-78); ALBUMIN 4.2 G/DL (3.4-5.0); ALBUMIN/GLOBULIN RATIO 1.3 (1.1-1.5); ALKALINE PHOSPHATASE 48 IU/L (46-116); ANION GAP 11 (8-16); ASPARTATE AMINO TRANSFERASE 8 U/L (10-37); BILIRUBIN,TOTAL 1.7 MG/DL (0.1-1.0); BLOOD UREA NITROGEN 19 MG/DL (7-18); BUN/CREATININE RATIO 25.3 (6.6-38.0); CALCIUM 8.7 MG/DL (8.5-10.1); CHLORIDE 106 MMOL/L (99-107); CREATININE 0.75 MG/DL (0.40-0.90); GLUCOSE 99 MG/DL (70-104); LIPASE 68 U/L (73-393); POTASSIUM 3.1 MMOL/L (3.5-5.1); SODIUM 141 MMOL/L (135-145); TOTAL CARBON DIOXIDE 24.4 MMOL/L (24-32); TOTAL PROTEIN 7.5 G/DL (6.4-8.2); eGFR 80 ML/MIN
[2021-10-17 13:14] LABS: ANISOCYTOSIS 1+; ELLIPTOCYTES 1+; HYPOCHROMASIA 2+; MICROCYTOSIS 2+; PLATELET ESTIMATE NORMAL; POLYCHROMASIA 1+; TARGET CELLS FEW; TEAR DROP CELLS 1+
[2021-10-17 13:15] LABS: SCHISTOCYTES FEW
[2021-10-17] MEDS ORDERED: diphenhydrAMINE 50 mg/ml inj IV ONE (20:00)
[2021-10-17] MEDS ORDERED: ketorolac trometh. 30mg/ml inj. IV ONE (20:00)
[2021-10-17] MEDS ORDERED: iohexol 300mg/ml 100ml inj. ONE (20:00)
[2021-10-17] MEDS ORDERED: metoclopramide 5 mg/ml inj IV ONE (20:00)
[2021-10-17] MEDS ORDERED: glycopyrrolate 0.2mg/ml inj IV ONE (20:00)
[2021-10-17] MEDS ORDERED: LORazepam 2 mg/ml vial IV ONE (20:00)
[2021-10-17] MEDS ORDERED: normal saline 1000ML IV soln IVB ONE (20:00)
[2021-10-17 20:17] LABS: CLARITY,URINE CLEAR (Clear); COLOR,URINE YELLOW (Yellow); GLUCOSE, URINE NEGATIVE (Neg); KETONES,URINE TRACE mg/dl (Neg); LEUKOCYTE ESTERASE ,URINE SMALL (Neg); NITRITES, URINE NEGATIVE (Neg); OCCULT BLOOD,URINE NEGATIVE (Neg); PH,URINE 5.5 (4.8-8.0); PROTEIN,URINE NEGATIVE (Neg); UROBILINOGEN,URINE 0.2 E.U/dL (0.2-1.0)
[2021-10-17 20:23] LABS: UA COLLECTION TYPE CLN CATCH MIDSTREAM
[2021-10-17 20:25] LABS: BACTERIA,URINE FEW /HPF (Neg); MUCUS STRANDS MODERATE /LPF (Neg); RBC,URINE NONE SEEN /HPF (0-2); SQUAMOUS EPITHELIAL CELL,UR FEW /LPF (FEW); WBC,URINE 20-30 /HPF (0-4)
[2021-10-17 20:46] LABS: URINE HCG NEGATIVE (NEG)
[2021-10-17 21:07] VITALS: BP 94/67
[2021-10-17] MEDS ORDERED: CefTRIAXone 2gm/D5W 50ml BAG 50 ML IV ONE (21:30)
[2021-10-17] MEDS ORDERED: ONDA4TAB12 PO (21:38)
[2021-10-17] MEDS ORDERED: CEPH-585 PO (21:38)
== END 2021-10-17 23:55 | disposition home or self-care (01) ==
LOC: ER 10:37
DX: N39.0 Urinary tract infection, site not specified (principal); R10.31 Right lower quadrant pain; R91.1 Solitary pulmonary nodule; R19.7 Diarrhea, unspecified; R11.2 Nausea with vomiting, unspecified; G43.909 Migraine, unspecified, not intractable, without status migrainosus; I48.91 Unspecified atrial fibrillation; I10 Essential (primary) hypertension; J45.909 Unspecified asthma, uncomplicated; G89.29 Other chronic pain; Z86.2 Personal history of diseases of the blood and blood-forming organs and certain disorders involving the immune mechanism; Z86.73 Personal history of transient ischemic attack (TIA), and cerebral infarction without residual deficits; Z98.890 Other specified postprocedural states; Z88.2 Allergy status to sulfonamides; Z88.6 Allergy status to analgesic agent; Z88.8 Allergy status to other drugs, medicaments and biological substances; Z79.2 Long term (current) use of antibiotics; Z79.899 Other long term (current) drug therapy
CPT/HCPCS: 36415; 74177; 80053; 81001; 81025; 83690; 84145; 85008; 85025; 87088; 96365; 96375; 99285; J0696; J1200; J1885; J2765; J3490; J7030; Q9967

== ENCOUNTER 2021-12-22 16:30 | Emergency (ER) | payer MEDICARE, MEDICAID ==
[~2021-12-22] VITALS: Ht 167.6 cm; Wt 90.9 kg
[~2021-12-22 16:30] MED LIST changes: +CEPH-585 PO; +ONDA4TAB12 PO
[2021-12-22 16:47] VITALS: BP 110/73
[2021-12-22] MEDS ORDERED: ALBU6.7H9 INH (18:12)
[2021-12-22] MEDS ORDERED: AMOX-117 PO (18:12)
== END 2021-12-22 18:21 | disposition home or self-care (01) ==
LOC: ER 16:31
DX: J20.9 Acute bronchitis, unspecified (principal); Z20.822 Contact with and (suspected) exposure to COVID-19; E86.0 Dehydration; R05.9 Cough, unspecified; R50.9 Fever, unspecified; G43.909 Migraine, unspecified, not intractable, without status migrainosus; I48.91 Unspecified atrial fibrillation; I10 Essential (primary) hypertension; J45.909 Unspecified asthma, uncomplicated; G89.29 Other chronic pain; Z86.73 Personal history of transient ischemic attack (TIA), and cerebral infarction without residual deficits; Z86.2 Personal history of diseases of the blood and blood-forming organs and certain disorders involving the immune mechanism; Z98.890 Other specified postprocedural states; Z88.2 Allergy status to sulfonamides; Z88.6 Allergy status to analgesic agent; Z88.8 Allergy status to other drugs, medicaments and biological substances; Z79.2 Long term (current) use of antibiotics; Z79.899 Other long term (current) drug therapy
CPT/HCPCS: 71045; 87635; 99284; C9803

== ENCOUNTER 2022-03-01 17:37 | Emergency (ER) | payer MEDICARE, MEDICAID ==
[~2022-03-01] VITALS: Ht 167.6 cm; Wt 90.9 kg
[~2022-03-01 17:37] MED LIST changes: +ALBU6.7H9 INH; +OMEP20TA43 PO; -OMEP20TA5 PO
[2022-03-01 17:41] VITALS: BP 142/75
[2022-03-01] MEDS ORDERED: ipratropium/albuterol 3ml nebule NEB ONE (17:45)
[2022-03-01] MEDS ORDERED: AZIT250T2 PO (19:13)
[2022-03-01] MEDS ORDERED: PRED20TA PO ×2 (19:13→19:28)
[2022-03-01] MEDS ORDERED: ALB0.5UD IH ×2 (19:13→19:28)
[2022-03-01] MEDS ORDERED: AZIT250T PO (19:28)
== END 2022-03-01 19:34 | disposition home or self-care (01) ==
LOC: ER 17:38
DX: J06.9 Acute upper respiratory infection, unspecified (principal); R05.9 Cough, unspecified; R06.02 Shortness of breath; G43.909 Migraine, unspecified, not intractable, without status migrainosus; I48.91 Unspecified atrial fibrillation; I10 Essential (primary) hypertension; J45.909 Unspecified asthma, uncomplicated; G89.29 Other chronic pain; Z86.73 Personal history of transient ischemic attack (TIA), and cerebral infarction without residual deficits; Z86.2 Personal history of diseases of the blood and blood-forming organs and certain disorders involving the immune mechanism; Z98.890 Other specified postprocedural states; Z88.2 Allergy status to sulfonamides; Z88.6 Allergy status to analgesic agent; Z88.8 Allergy status to other drugs, medicaments and biological substances; Z79.2 Long term (current) use of antibiotics; Z79.899 Other long term (current) drug therapy
CPT/HCPCS: 71045; 87502; 87503; 94640; 94760; 99284

== ENCOUNTER 2022-04-07 16:58 | Emergency (ER) | payer MEDICARE, MEDICAID ==
[~2022-04-07] VITALS: Ht 162.6 cm; Wt 81.8 kg
[2022-04-07 17:57] VITALS: BP 96/62
== END 2022-04-07 23:22 | disposition left against medical advice (07) ==
LOC: ER 17:00
DX: U07.1 COVID-19 (principal); R05.9 Cough, unspecified; Z53.21 Procedure and treatment not carried out due to patient leaving prior to being seen by health care provider

== ENCOUNTER 2022-06-09 18:34 | Emergency (ER) | payer MEDICARE, MEDICAID ==
[~2022-06-09] VITALS: Ht 170.2 cm; Wt 90.0 kg
[2022-06-09 18:45] VITALS: BP 128/81
[2022-06-09] MEDS ORDERED: amox tr/potassium clavulanate 875/125mg TAB PO ONE (19:40)
[2022-06-09] MEDS ORDERED: AMOX-117 PO (19:45)
== END 2022-06-09 20:08 | disposition home or self-care (01) ==
LOC: ER 18:35
DX: K04.7 Periapical abscess without sinus (principal); G43.909 Migraine, unspecified, not intractable, without status migrainosus; I10 Essential (primary) hypertension; J45.909 Unspecified asthma, uncomplicated; G89.29 Other chronic pain; Z88.2 Allergy status to sulfonamides; Z88.5 Allergy status to narcotic agent; Z88.6 Allergy status to analgesic agent; Z88.8 Allergy status to other drugs, medicaments and biological substances
CPT/HCPCS: 99282

== ENCOUNTER 2022-07-19 16:49 | Emergency (ER) | payer MEDICARE, MEDICAID ==
[~2022-07-19] VITALS: Ht 167.6 cm; Wt 84.1 kg
[~2022-07-19 16:49] MED LIST changes: +ALBU6.7H14 INH; -ALBU6.7H9 INH
[2022-07-19 16:57] VITALS: BP 142/83
[2022-07-19] MEDS ORDERED: diazepam inj 5 MG/ML inj. IV ONE (18:45)
[2022-07-19] MEDS ORDERED: metoclopramide 5 mg/ml inj IV ONE (18:45)
[2022-07-19] MEDS ORDERED: ketorolac trometh. 30mg/ml inj. IV ONE (18:45)
[2022-07-19] MEDS ORDERED: normal saline 1000ml 1,000 ML IV ONE (18:45)
== END 2022-07-19 20:12 | disposition home or self-care (01) ==
LOC: ER 16:49
DX: G43.909 Migraine, unspecified, not intractable, without status migrainosus (principal); R11.0 Nausea; H53.149 Visual discomfort, unspecified; I48.91 Unspecified atrial fibrillation; I10 Essential (primary) hypertension; J45.909 Unspecified asthma, uncomplicated; G89.29 Other chronic pain; Z86.73 Personal history of transient ischemic attack (TIA), and cerebral infarction without residual deficits; Z86.2 Personal history of diseases of the blood and blood-forming organs and certain disorders involving the immune mechanism; Z98.890 Other specified postprocedural states; Z88.2 Allergy status to sulfonamides; Z88.6 Allergy status to analgesic agent; Z88.8 Allergy status to other drugs, medicaments and biological substances; Z79.2 Long term (current) use of antibiotics; Z79.899 Other long term (current) drug therapy
CPT/HCPCS: 96361; 96374; 96375; 99284; J1885; J2765; J3360; J7030

== ENCOUNTER 2022-09-22 11:50 | Emergency (ER) | payer MEDICARE, MEDICAID ==
[~2022-09-22] VITALS: Ht 165.1 cm; Wt 86.0 kg
[2022-09-22 14:12] LABS: EOSINOPHILS % (AUTO) 0.1 % (0-6); HEMOGLOBIN 10.6 g/dl (12.0-16.0); LYMPHOCYTES # (AUTO) 0.7 X10'3 (1.1-4.8); MONOCYTES # (AUTO) 0.4 X10'3 (0-0.9)
[2022-09-22 14:14] LABS: BASOPHILS % (AUTO) 0.1 % (0-1); HEMATOCRIT 34.2 % (35.0-45.0); LYMPHOCYTES % (AUTO) 7.1 % (21-51); MEAN CORPUSCULAR HEMOGLOBIN 19.1 PG (27.0-31.0); MEAN CORPUSCULAR VOLUME 61.6 FL (78-98); MEAN PLATELET VOLUME 8.8 FL (7.4-10.4); MONOCYTES % (AUTO) 3.6 % (2-12); NEUTROPHILS % (AUTO) 89.1 % (42-75); PLATELET COUNT 144 X10'3 (140-440); RED BLOOD COUNT 5.55 X10'6 (4.20-5.60); RED CELL DISTRIBUTION WIDTH 15.9 % (11.5-14.5); WHITE BLOOD COUNT 10.1 X10'3 (4.5-11.0)
[2022-09-22 14:34] LABS: ALANINE AMINOTRANSFERASE 17 U/L (12-78); ALBUMIN 4.4 G/DL (3.4-5.0); ALBUMIN/GLOBULIN RATIO 1.3 (1.1-1.5); ALKALINE PHOSPHATASE 42 IU/L (46-116); ANION GAP 13 (8-16); ASPARTATE AMINO TRANSFERASE 19 U/L (10-37); BILIRUBIN,TOTAL 1.1 MG/DL (0.1-1.0); BLOOD UREA NITROGEN 18 MG/DL (7-18); BUN/CREATININE RATIO 22.5 (6.6-38.0); CALCIUM 9.2 MG/DL (8.5-10.1); CHLORIDE 108 MMOL/L (99-107); GLUCOSE 144 MG/DL (70-104); POTASSIUM 3.6 MMOL/L (3.5-5.1); SODIUM 143 MMOL/L (135-145); TOTAL CARBON DIOXIDE 22.1 MMOL/L (24-32); TOTAL PROTEIN 7.9 G/DL (6.4-8.2); eGFR 74 ML/MIN
[2022-09-22 14:35] LABS: LIPASE 113 U/L (73-393)
[2022-09-22 15:20] LABS: LARGE PLATELETS FEW; MICROCYTOSIS 2+; PLATELET ESTIMATE NORMAL
[2022-09-22 15:21] LABS: ELLIPTOCYTES 1+; POLYCHROMASIA 1+; TEAR DROP CELLS 1+
[2022-09-22 22:26] LABS: URINE HCG NEGATIVE (NEG)
[2022-09-22 22:28] LABS: CLARITY,URINE CLOUDY (Clear); COLOR,URINE YELLOW (Yellow); GLUCOSE, URINE NEGATIVE (Neg); KETONES,URINE 40 mg/dl (Neg); LEUKOCYTE ESTERASE ,URINE NEGATIVE (Neg); NITRITES, URINE NEGATIVE (Neg); OCCULT BLOOD,URINE SMALL (Neg); PH,URINE 5.5 (4.8-8.0); PROTEIN,URINE NEGATIVE (Neg); UROBILINOGEN,URINE 0.2 E.U/dL (0.2-1.0)
[2022-09-22] MEDS ORDERED: normal saline 1000ML IV soln IVB ONE ×2 (22:35→23:35)
[2022-09-22] MEDS ORDERED: acetaminophen 325mg tablet PO ONE (22:35)
[2022-09-22] MEDS ORDERED: morphine 4 MG/ML inj SYRINge IV ONE (22:35)
[2022-09-22] MEDS ORDERED: ondansetron/PF 4mg/2ml inj IV ONE (22:35)
[2022-09-22 22:36] LABS: UA COLLECTION TYPE CLN CATCH MIDSTREAM
[2022-09-22 22:39] LABS: BACTERIA,URINE 1+ /HPF (Neg); RBC,URINE 0-2 /HPF (0-2); WBC,URINE 0-4 /HPF (0-4)
[2022-09-22 22:40] LABS: AMORPHOUS URATES 4+; MUCUS STRANDS FEW /LPF (Neg); SQUAMOUS EPITHELIAL CELL,UR FEW /LPF (FEW)
[2022-09-22] MEDS ORDERED: ketorolac trometh. 30mg/ml inj. IV ONE (23:35)
[2022-09-23 01:20] VITALS: BP 121/82
== END 2022-09-23 01:21 | disposition home or self-care (01) ==
LOC: ER 11:52
DX: R10.30 Lower abdominal pain, unspecified (principal); R50.9 Fever, unspecified; R11.2 Nausea with vomiting, unspecified; N20.0 Calculus of kidney; G43.909 Migraine, unspecified, not intractable, without status migrainosus; I48.91 Unspecified atrial fibrillation; I10 Essential (primary) hypertension; J45.909 Unspecified asthma, uncomplicated; G89.29 Other chronic pain; Z86.73 Personal history of transient ischemic attack (TIA), and cerebral infarction without residual deficits; Z86.2 Personal history of diseases of the blood and blood-forming organs and certain disorders involving the immune mechanism; Z98.890 Other specified postprocedural states; Z88.8 Allergy status to other drugs, medicaments and biological substances; Z88.2 Allergy status to sulfonamides; Z79.2 Long term (current) use of antibiotics; Z79.899 Other long term (current) drug therapy
CPT/HCPCS: 36415; 74176; 80053; 81001; 81025; 83690; 85008; 85025; 96361; 96374; 96375; 99285; J1885; J2270; J2405; J7030

== ENCOUNTER 2022-10-06 04:52 | Emergency (ER) | payer MEDICARE, MEDICAID ==
[~2022-10-06] VITALS: Ht 157.5 cm; Wt 81.8 kg
[2022-10-06 07:18] LABS: EOSINOPHILS # (AUTO) 0.1 X10'3 (0-0.9); EOSINOPHILS % (AUTO) 1.2 % (0-6); HEMOGLOBIN 10.5 g/dl (12.0-16.0); MONOCYTES # (AUTO) 0.3 X10'3 (0-0.9); NEUTROPHILS # (AUTO) 7.2 X10'3 (1.8-7.7); WHITE BLOOD COUNT 8.8 X10'3 (4.5-11.0)
[2022-10-06 07:20] LABS: BASOPHILS % (AUTO) 0.2 % (0-1); HEMATOCRIT 33.4 % (35.0-45.0); LYMPHOCYTES # (AUTO) 1.2 X10'3 (1.1-4.8); LYMPHOCYTES % (AUTO) 13.2 % (21-51); MEAN CORPUSCULAR HEMOGLOBIN 19.2 PG (27.0-31.0); MEAN CORPUSCULAR HGB CONC 31.4 g/dL (33.0-36.5); MEAN CORPUSCULAR VOLUME 61.3 FL (78-98); MEAN PLATELET VOLUME 9.9 FL (7.4-10.4); MONOCYTES % (AUTO) 3.7 % (2-12); NEUTROPHILS % (AUTO) 81.7 % (42-75); PLATELET COUNT 200 X10'3 (140-440); RED BLOOD COUNT 5.44 X10'6 (4.20-5.60); RED CELL DISTRIBUTION WIDTH 15.2 % (11.5-14.5)
[2022-10-06] MEDS ORDERED: ketorolac trometh. 30mg/ml inj. IV ONE (07:30)
[2022-10-06] MEDS ORDERED: normal saline 1000ML IV soln IVB ONE (07:30)
[2022-10-06 07:37] LABS: ALANINE AMINOTRANSFERASE 18 U/L (12-78); ALBUMIN 4.1 G/DL (3.4-5.0); ALBUMIN/GLOBULIN RATIO 1.3 (1.1-1.5); ALKALINE PHOSPHATASE 44 IU/L (46-116); ANION GAP 11 (8-16); ASPARTATE AMINO TRANSFERASE 17 U/L (10-37); BILIRUBIN,TOTAL 0.8 MG/DL (0.1-1.0); BLOOD UREA NITROGEN 17 MG/DL (7-18); BUN/CREATININE RATIO 20.5 (6.6-38.0); CALCIUM 8.6 MG/DL (8.5-10.1); CHLORIDE 105 MMOL/L (99-107); CREATININE 0.83 MG/DL (0.40-0.90); GLUCOSE 105 MG/DL (70-104); LIPASE 235 U/L (73-393); POTASSIUM 3.9 MMOL/L (3.5-5.1); SODIUM 140 MMOL/L (135-145); TOTAL CARBON DIOXIDE 24.3 MMOL/L (24-32); TOTAL PROTEIN 7.2 G/DL (6.4-8.2); eGFR 71 ML/MIN
[2022-10-06 07:56] LABS: MICROCYTOSIS 2+; PLATELET ESTIMATE NORMAL
[2022-10-06 07:57] LABS: ELLIPTOCYTES 1+; HYPOCHROMASIA 2+; TEAR DROP CELLS FEW
[2022-10-06 07:58] LABS: LARGE PLATELETS FEW; SCHISTOCYTES FEW
[2022-10-06 08:03] LABS: CLARITY,URINE CLOUDY (Clear); COLOR,URINE YELLOW (Yellow); GLUCOSE, URINE NEGATIVE (Neg); KETONES,URINE TRACE mg/dl (Neg); LEUKOCYTE ESTERASE ,URINE NEGATIVE (Neg); NITRITES, URINE NEGATIVE (Neg); OCCULT BLOOD,URINE LARGE (Neg); PROTEIN,URINE 100 mg/dl (Neg); UROBILINOGEN,URINE 0.2 E.U/dL (0.2-1.0)
[2022-10-06 08:06] LABS: URINE HCG NEGATIVE (NEG)
[2022-10-06 08:08] LABS: UA COLLECTION TYPE CLN CATCH MIDSTREAM
[2022-10-06 08:09] LABS: BACTERIA,URINE 2+ /HPF (Neg); RBC,URINE TNTC /HPF (0-2)
[2022-10-06 08:10] LABS: SQUAMOUS EPITHELIAL CELL,UR FEW /LPF (FEW)
[2022-10-06 08:11] LABS: AMORPHOUS URATES 3+
[2022-10-06] MEDS ORDERED: CefTRIAXone 2gm/D5W 50ml BAG 50 ML IV ONE (09:20)
[2022-10-06] MEDS ORDERED: CIPR-259 PO (09:27)
[2022-10-06 10:02] VITALS: BP 132/78
== END 2022-10-06 10:04 | disposition home or self-care (01) ==
LOC: ER 04:52
DX: N39.0 Urinary tract infection, site not specified (principal); R10.84 Generalized abdominal pain; R11.0 Nausea; G43.909 Migraine, unspecified, not intractable, without status migrainosus; I48.91 Unspecified atrial fibrillation; I10 Essential (primary) hypertension; J45.909 Unspecified asthma, uncomplicated; G89.29 Other chronic pain; Z86.73 Personal history of transient ischemic attack (TIA), and cerebral infarction without residual deficits; Z87.442 Personal history of urinary calculi; Z86.2 Personal history of diseases of the blood and blood-forming organs and certain disorders involving the immune mechanism; Z98.890 Other specified postprocedural states; Z88.2 Allergy status to sulfonamides; Z88.8 Allergy status to other drugs, medicaments and biological substances; Z79.2 Long term (current) use of antibiotics; Z79.899 Other long term (current) drug therapy
CPT/HCPCS: 36415; 74176; 80053; 81001; 81025; 83690; 85008; 85025; 87088; 96361; 96365; 96375; 99284; J0696; J1885; J7030

== ENCOUNTER 2022-12-05 20:55 | Emergency (ER) | payer MEDICARE, MEDICAID ==
[~2022-12-05] VITALS: Ht 167.6 cm; Wt 90.9 kg
[~2022-12-05 20:55] MED LIST changes: -CEPH-585 PO
[2022-12-06 02:07] VITALS: BP 147/85
[2022-12-06] MEDS ORDERED: ondansetron/PF 4mg/2ml inj IV ONE (03:35)
[2022-12-06] MEDS ORDERED: normal saline 1000ML IV soln IVB ONE (03:35)
[2022-12-06] MEDS ORDERED: ketorolac tromethamine 15mg/ml inj. IV ONE (03:35)
[2022-12-06] MEDS ORDERED: metoclopramide 5 mg/ml inj IV ONE (03:35)
== END 2022-12-06 05:24 | disposition home or self-care (01) ==
LOC: ER 20:56
DX: G43.909 Migraine, unspecified, not intractable, without status migrainosus (principal); I10 Essential (primary) hypertension; J45.909 Unspecified asthma, uncomplicated; G89.29 Other chronic pain; I48.91 Unspecified atrial fibrillation; Z87.442 Personal history of urinary calculi; Z86.73 Personal history of transient ischemic attack (TIA), and cerebral infarction without residual deficits; Z86.2 Personal history of diseases of the blood and blood-forming organs and certain disorders involving the immune mechanism; Z98.890 Other specified postprocedural states; Z88.2 Allergy status to sulfonamides; Z88.5 Allergy status to narcotic agent; Z88.8 Allergy status to other drugs, medicaments and biological substances; Z79.899 Other long term (current) drug therapy
CPT/HCPCS: 96374; 96375; 99284; J1885; J2405; J2765; J7030

== ENCOUNTER 2023-06-10 20:34 | Emergency (ER) | payer MEDICARE, MEDICAID ==
[~2023-06-10] VITALS: Ht 170.2 cm; Wt 84.2 kg
[~2023-06-10 20:34] MED LIST changes: +ALBU18HF2 INH; -ALBU6.7H14 INH; -ALBU8.5H4 IH; +AZIT-164 PO; +BACL10TA2 PO; +BUSP30TA3 PO; -CETI10TA14 PO; -CYAN-51 PO; +CYCL1DRO2 EACHEYE; -DOCU-274 PO; +FAMO20TA8 PO; +FLUT16SP26 BOTHNARES; +GABA-530 PO; -GABA-532 PO; -GUAI600T45 PO; -LISI-222 PO; +LISI10TA27 PO; -MAGN400T52 PO; -MECL-159 PO; +METO100T14 PO; -METO50TA16 PO; -OMEP20TA43 PO; -ONDA4TAB12 PO; -PANT-47 PO; -SUMA100T16 PO; -SUMA25TA35 PO; +TOP100T PO; -TOPI25TA49 PO
[2023-06-10 20:50] VITALS: BP 119/81; PULSE 76; RESP 18; TEMP 100.6; O2SAT 99
[2023-06-10] MEDS ORDERED: IBUP-1984 PO (22:20)
== END 2023-06-10 22:30 | disposition home or self-care (01) ==
LOC: ER 20:35
DX: S60.031A Contusion of right middle finger without damage to nail, initial encounter (principal); S60.041A Contusion of right ring finger without damage to nail, initial encounter; G43.909 Migraine, unspecified, not intractable, without status migrainosus; I10 Essential (primary) hypertension; J45.909 Unspecified asthma, uncomplicated; Z88.8 Allergy status to other drugs, medicaments and biological substances; Z88.2 Allergy status to sulfonamides; Z88.5 Allergy status to narcotic agent; Z79.1 Long term (current) use of non-steroidal anti-inflammatories (NSAID); Z79.2 Long term (current) use of antibiotics; X58.XXXA Exposure to other specified factors, initial encounter; Y93.89 Activity, other specified; Y92.89 Other specified places as the place of occurrence of the external cause; Y99.8 Other external cause status
CPT/HCPCS: 73140; 99283

== ENCOUNTER 2023-06-24 22:03 | Emergency (ER) | payer MEDICARE, MEDICAID ==
[~2023-06-24] VITALS: Ht 167.6 cm; Wt 90.0 kg
[~2023-06-24 22:03] MED LIST changes: +IBUP-1984 PO
[2023-06-24 23:05] VITALS: BP 138/72; PULSE 106; RESP 18; TEMP 99.7; O2SAT 98
--- NOTE | 2023-06-25 01:47 | NUR ---
pt wants to leave, came by EMS. She is delayed. Safer calling her a taxi vs not getting her a taxi so a taxi was called for the pt for safety purposes.
== END 2023-06-25 05:47 | disposition left against medical advice (07) ==
LOC: ER 22:03
DX: U07.1 COVID-19 (principal); Z53.21 Procedure and treatment not carried out due to patient leaving prior to being seen by health care provider; M54.6 Pain in thoracic spine; R05.9 Cough, unspecified; J02.9 Acute pharyngitis, unspecified; R11.2 Nausea with vomiting, unspecified
CPT/HCPCS: 36415; 87811; 99281

== ENCOUNTER 2023-10-13 16:24 | Emergency (ER) | payer MEDICARE, MEDICAID ==
[~2023-10-13] VITALS: Ht 170.2 cm; Wt 90.4 kg
[~2023-10-13 16:24] MED LIST changes: -AZIT-164 PO; -IBUP-1984 PO; +RIBO100T6 PO
[2023-10-13 17:12] VITALS: BP 115/80; TEMP 98
[2023-10-13 20:06] LABS: BASOPHILS % (AUTO) 0.5 % (0-1); MEAN CORPUSCULAR VOLUME 62.7 FL (78-98); WHITE BLOOD COUNT 7.3 X10'3 (4.5-11.0)
[2023-10-13 20:08] LABS: EOSINOPHILS # (AUTO) 0.2 X10'3 (0-0.9); EOSINOPHILS % (AUTO) 3.2 % (0-6); HEMATOCRIT 35.1 % (35.0-45.0); LYMPHOCYTES % (AUTO) 26.9 % (21-51); MEAN CORPUSCULAR HEMOGLOBIN 19.7 PG (27.0-31.0); MEAN CORPUSCULAR HGB CONC 31.5 g/dL (33.0-36.5); MEAN PLATELET VOLUME 8.8 FL (7.4-10.4); MONOCYTES # (AUTO) 0.4 X10'3 (0-0.9); MONOCYTES % (AUTO) 5.4 % (2-12); NEUTROPHILS # (AUTO) 4.7 X10'3 (1.8-7.7); PLATELET COUNT 158 X10'3 (140-440); RED BLOOD COUNT 5.59 X10'6 (4.20-5.60); RED CELL DISTRIBUTION WIDTH 14.8 % (11.5-14.5)
[2023-10-13 20:19] LABS: ALANINE AMINOTRANSFERASE 20 U/L (12-78); ALBUMIN 4.2 G/DL (3.4-5.0); ALBUMIN/GLOBULIN RATIO 1.2 (1.1-1.5); ALKALINE PHOSPHATASE 43 IU/L (46-116); ANION GAP 7 (8-16); ASPARTATE AMINO TRANSFERASE 12 U/L (10-37); BILIRUBIN,TOTAL 1.1 MG/DL (0.1-1.0); BLOOD UREA NITROGEN 16 MG/DL (7-18); CALCIUM 8.9 MG/DL (8.5-10.1); CHLORIDE 107 MMOL/L (99-107); CREATININE 0.89 MG/DL (0.40-0.90); GLUCOSE 98 MG/DL (70-104); LIPASE 64 U/L (16-77); POTASSIUM 3.5 MMOL/L (3.5-5.1); SODIUM 141 MMOL/L (135-145); TOTAL CARBON DIOXIDE 26.9 MMOL/L (24-32); TOTAL PROTEIN 7.6 G/DL (6.4-8.2); eCRCL 66 ML/MIN; eGFR 65 ML/MIN
[2023-10-13 20:54] LABS: ANISOCYTOSIS 1+; ELLIPTOCYTES 1+; MICROCYTOSIS 2+; PLATELET ESTIMATE NORMAL; TEAR DROP CELLS 1+
[2023-10-13 20:55] LABS: HYPOCHROMASIA 1+; LARGE PLATELETS FEW; SCHISTOCYTES FEW; TARGET CELLS FEW
[2023-10-13] MEDS ORDERED: ketorolac trometh inj. 60 MG/2 ML VIAL IM ONE (22:50)
[2023-10-13 23:57] VITALS: PULSE 78; RESP 18; O2SAT 98
== END 2023-10-13 23:49 | disposition home or self-care (01) ==
LOC: ER 16:24
DX: R10.13 Epigastric pain (principal); G43.909 Migraine, unspecified, not intractable, without status migrainosus; I48.91 Unspecified atrial fibrillation; I10 Essential (primary) hypertension; J45.909 Unspecified asthma, uncomplicated; G89.29 Other chronic pain; Z88.8 Allergy status to other drugs, medicaments and biological substances; Z88.2 Allergy status to sulfonamides; Z79.899 Other long term (current) drug therapy
CPT/HCPCS: 36415; 80053; 83690; 85008; 85025; 96372; 99283; J1885

== ENCOUNTER 2024-10-19 10:28 | Emergency (ER) | payer MEDICARE, MEDICAID ==
[~2024-10-19] VITALS: Ht 167.6 cm; Wt 78.4 kg
[2024-10-19] MEDS ORDERED: BENZ-38 PO (11:10)
[2024-10-19] MEDS ORDERED: GUAI120015 PO (11:10)
[2024-10-19] MEDS ORDERED: PRED20TA PO (11:10)
[2024-10-19] MEDS ORDERED: ALBU18HF2 INH (11:11)
[2024-10-19] MEDS: ipratropium/albuterol 3ml nebule NEB ONE (11:20)
[2024-10-19 11:21] VITALS: PULSE 66; PULSE 94; RESP 15; RESP 16; O2SAT 0; O2SAT 96
[2024-10-19] MEDS: predniSONE 20 mg tablet PO ONE (11:32)
[2024-10-19 11:39] VITALS: BP 137/68; PULSE 66; RESP 16; TEMP 98.8; O2SAT 98
== END 2024-10-19 11:41 | disposition home or self-care (01) ==
LOC: ER 10:28
DX: J20.9 Acute bronchitis, unspecified (principal); J45.909 Unspecified asthma, uncomplicated; I48.91 Unspecified atrial fibrillation; I10 Essential (primary) hypertension; G89.29 Other chronic pain; M54.9 Dorsalgia, unspecified; G43.909 Migraine, unspecified, not intractable, without status migrainosus; D64.9 Anemia, unspecified; Z87.442 Personal history of urinary calculi; Z86.73 Personal history of transient ischemic attack (TIA), and cerebral infarction without residual deficits; Z88.8 Allergy status to other drugs, medicaments and biological substances; Z88.2 Allergy status to sulfonamides; Z88.6 Allergy status to analgesic agent; Z88.5 Allergy status to narcotic agent; Z79.899 Other long term (current) drug therapy; Z98.890 Other specified postprocedural states
CPT/HCPCS: 71046; 94640; 99283; J7512; 94760

== ENCOUNTER 2025-01-24 07:18 | Emergency (ER) | payer MEDICARE, MEDICAID ==
[~2025-01-24] VITALS: Ht 170.2 cm; Wt 90.0 kg
[~2025-01-24 07:18] MED LIST changes: +GUAI120015 PO
[2025-01-24 07:59] LABS: BASOPHILS % (AUTO) 0.4 % (0-1); EOSINOPHILS % (AUTO) 0.9 % (0-6); HEMATOCRIT 36.4 % (35.0-45.0); HEMOGLOBIN 11.4 g/dl (12.0-16.0); LYMPHOCYTES # (AUTO) 1.7 X10'3 (1.1-4.8); LYMPHOCYTES % (AUTO) 34.6 % (21-51); MEAN CORPUSCULAR HGB CONC 31.3 g/dL (33.0-36.5); MEAN CORPUSCULAR VOLUME 60.7 FL (78-98); MEAN PLATELET VOLUME 8.7 FL (7.4-10.4); MONOCYTES # (AUTO) 0.5 X10'3 (0-0.9); MONOCYTES % (AUTO) 10.7 % (2-12); NEUTROPHILS # (AUTO) 2.6 X10'3 (1.8-7.7); NEUTROPHILS % (AUTO) 53.4 % (42-75); PLATELET COUNT 126 X10'3 (140-440); RED CELL DISTRIBUTION WIDTH 15.7 % (11.5-14.5); WHITE BLOOD COUNT 4.8 X10'3 (4.5-11.0)
[2025-01-24 08:34] LABS: ALBUMIN 4.2 G/DL (3.4-5.0); ANION GAP 11 (8-16); BLOOD UREA NITROGEN 14 MG/DL (7-18); BUN/CREATININE RATIO 21.5 (10.0-20.0); CALCIUM 8.6 MG/DL (8.5-10.1); CHLORIDE 106 MMOL/L (99-107); CREATININE 0.65 MG/DL (0.40-0.90); GLUCOSE 95 MG/DL (70-104); POTASSIUM 3.6 MMOL/L (3.5-5.1); PRO BRAIN NATRIURETIC PEPTIDE 575 PG/ML (0-125); SODIUM 142 MMOL/L (135-145); TOTAL CARBON DIOXIDE 24.8 MMOL/L (24-32); eCRCL 90 ML/MIN; eGFR > 90 ML/MIN
[2025-01-24] MEDS ORDERED: PRED20TA PO (08:39)
[2025-01-24] MEDS ORDERED: BENZ-38 PO (08:40)
[2025-01-24] MEDS: benzonatate 100mg capsule PO ONE (08:48)
[2025-01-24] MEDS: dexamethasone 4mg/ml inj IM ONE (08:48)
[2025-01-24] MEDS: ondansetron 4mg rapidly disintigrating tab PO ONE (08:49)
[2025-01-24 08:52] VITALS: TEMP 98.6
[2025-01-24 09:12] VITALS: PULSE 96; RESP 16; O2SAT 95
[2025-01-24] MEDS: ipratropium/albuterol 3ml nebule NEB ONE ×2 (09:12→10:20)
[2025-01-24 09:19] VITALS: PULSE 93; RESP 16; O2SAT 99
[2025-01-24 09:32] LABS: ANISOCYTOSIS 1+; MICROCYTOSIS 2+; PLATELET ESTIMATE DECREASED
[2025-01-24 09:33] LABS: ELLIPTOCYTES 1+; HYPOCHROMASIA 1+; SCHISTOCYTES FEW; TARGET CELLS FEW
[2025-01-24] MEDS: acetaminophen 325mg tablet PO ONE (10:43)
[2025-01-24] MEDS: ketorolac trometh 15mg/ml vial 15 MG/ML ML IM ONE (10:43)
[2025-01-24] MEDS ORDERED: ONDA-243 PO (11:01)
[2025-01-24] MEDS ORDERED: IPRA3AMP9 NEB (11:02)
[2025-01-24 11:40] VITALS: BP 100/64; PULSE 97; RESP 13; O2SAT 98
== END 2025-01-24 11:31 | disposition home or self-care (01) ==
LOC: ER 07:18
DX: J20.8 Acute bronchitis due to other specified organisms (principal); B97.89 Other viral agents as the cause of diseases classified elsewhere; E78.5 Hyperlipidemia, unspecified; G47.30 Sleep apnea, unspecified; I11.0 Hypertensive heart disease with heart failure; I48.91 Unspecified atrial fibrillation; I50.32 Chronic diastolic (congestive) heart failure; Z20.822 Contact with and (suspected) exposure to COVID-19; Z86.73 Personal history of transient ischemic attack (TIA), and cerebral infarction without residual deficits; Z88.2 Allergy status to sulfonamides; Z88.5 Allergy status to narcotic agent; Z88.6 Allergy status to analgesic agent; Z88.8 Allergy status to other drugs, medicaments and biological substances
CPT/HCPCS: 36415; 71045; 80048; 83605; 83880; 85008; 85025; 87040; 87502; 87503; 87811; 93005; 94640; 96372; 99285; J1100; J1885; 94760

== ENCOUNTER 2025-02-21 10:44 | Emergency (ER) | payer MEDICARE, MEDICAID ==
[~2025-02-21] VITALS: Ht 167.6 cm; Wt 100.0 kg
[~2025-02-21 10:44] MED LIST changes: +IPRA3AMP9 NEB; +ONDA-243 PO
--- NOTE | 2025-02-21 11:11 | Physician Documentation ---
History of Present Illness ~ Chief Complaint: Bite-insect Stated Complaint: STUNG BY A BEE/ALLERGIC REACTION Time Seen by MD: 11:00 Primary Medical Doctor: wiliam CHAVEZ Patient is seen today with complaints of a bee sting to the right side of her neck that occurred just prior to arrival less than 10 minutes ago. Patient states she has pain radiating down her neck and into her right arm now. Patient states she has had pain on her right side already right upper and lower extremities from previous musculoskeletal elements. Patient denies any shortness of breath or swelling of her lips or face or tongue. Patient denies any known allergy to bee stings. Patient denies any chest pain or shortness of breath or abdominal pain and nausea, vomiting, diarrhea. She has no other concern or complaint at this time. Tetanus within 5 years?: Yes Medication Reconciliation Allergies: Coded Allergies: prochlorperazine (Verified Allergy, Mild, TACHYCARDIA, 02/21/25) Sulfa (Sulfonamide Antibiotics) (Verified Allergy, Unknown, 02/21/25) hydrocodone (Verified Allergy, Unknown, 02/21/25) naproxen (Verified Allergy, Unknown, 02/21/25) Scheduled Baclofen (Baclofen), 1 TAB PO TID, (Reported) Buspirone HCl (Buspirone HCl), 1 TAB PO DAILY, (Reported) Cyclosporine (Restasis), 1 DROP EACHEYE BID, (Reported) Famotidine (Famotidine), 1 TAB PO BID, (Reported) Gabapentin (Gabapentin), 1 CAP PO HS, (Reported) Guaifenesin (Mucinex), 1 TAB PO Q12H Lisinopril (Lisinopril), 2.5 MG PO DAILY Metoprolol Tartrate (Metoprolol Tartrate), 1 TAB PO BID, (Reported) Riboflavin (Vitamin B-2), 100 MG PO DAILY, (Reported) Rivaroxaban (Xarelto), 1 TAB PO DAILY, (Reported) Topiramate (Topamax), 1.5 TAB PO QAM, (Reported) Scheduled PRN Albuterol Sulfate (Ventolin Hfa), 2 PUFFS INH Q4HPRN PRN for wheezing Fluticasone Propionate (Fluticasone Propionate), 1-2 SPRAYS BOTHNARES BID PRN for allergies, (Reported) Ipratropium/Albuterol Sulfate (IPRAT-ALBUT 0.5-3(2.5) MG/3 ML nebule), 1 VIAL NEB Q8H PRN for SOB or wheezing ONDANSETRON ODT 4mg tablet (Ondansetron Odt), 1 TAB PO Q6H PRN PRN for nausea/vomiting Miscellaneous Medications Albuterol Sulfate (Ventolin Hfa), 2 PUFFS INH, (Reported) Past Medical History Past Medical History: CVA/TIA/Stroke, Headache, Migraine, Vertigo, Atrial Fibrillation, Hypertension, Asthma, Anemia, Kidney Stones, Chronic Pain, Chronic Back Pain Past Surgical History: orthopedic surgeries, other Patient History: FH: heart disease FATHER, , Age: 60 years and older, Cause: Cancer MOTHER, , Age: 50's - 60, Cause: Heart disease Other Past Family History: UNKNOWN Alcohol Use: None Drug Use: none Lives with: Family Lives In: Home Occupation: employed Review of Systems Constitutional: Denies: chills, fever, weakness Eyes: Denies: pain, blurred vision ENT: Denies: ear pain, nose pain, throat pain, mouth pain Respiratory: Denies: cough, shortness of breath Cardiovascular: Denies: chest pain, palpitations Gastrointestinal: Denies: abdominal pain, nausea, vomiting Genitourinary: Denies: burning, dysuria Female Genitalia: Denies: vaginal discharge, pelvic pain Neurological: Denies: headache, dizziness Musculoskeletal: Denies: pain, swelling Integumentary: Denies: rash, lesions Allergic/Immunologic: Denies: hives, itching Hematologic/Lymphatic: Denies: no symptoms reported Psychiatric: Denies: depression, anxiety Physical Exam Vital Signs: Temperature: 98.1, Heart Rate: 101, Respiratory Rate: 16, BP: 163/90, Pulse Oximetry: 99, Weight: 100.000 Physical Exam General: Awake and Alert, no acute distress. HEENT: Conjunctiva pink, Sclera clear, Mucus Membranes moist. Neck: Supple without masses and tenderness. Resp: Unlabored. Lungs clear to auscultation bilaterally. Heart: Regular Rate and rhythm, normal S1 and S2 without murmur, rub or gallop. Extremities: No cyanosis,clubbing or edema. Skin: On exam of the right side of patient's neck, I do not appreciate any hives or welts or sign of a bee sting. Patient does have a small erythematous skin lesion but does not appear to be consistent with a bee sting in my opinion. The lesion in question appears more chronic. Progress Results/Orders Results/Orders Vital Signs 02/21/25 10:51 Temp 98.1 Pulse 101 Resp 16 B/P (MAP) 163/90 Pulse Ox 99 Medical Decision Making Findings Patient is seen today with complaints of a bee sting to the right side of her neck that occurred just prior to arrival less than 10 minutes ago. Patient states she has pain radiating down her neck and into her right arm now. Patient states she has had pain on her right side already right upper and lower extremities from previous musculoskeletal elements. Patient denies any shortness of breath or swelling of her lips or face or tongue. Patient denies any known allergy to bee stings. Patient denies any chest pain or shortness of breath or abdominal pain and nausea, vomiting, diarrhea. She has no other concern or complaint at this time. Patient was given in the ED today 30 mg Toradol IM, Decadron 10 mg IM, Benadryl 25 mg IM, baclofen 10 mg p.o.. Patient will follow up with primary care in 1-5 days if no better as needed sooner. Return to ED with any worsening, concerning or changing symptoms. Shared decision-making utilized with the patient today. Patient will continue Benadryl by mouth as needed. I feel patient may also have muscle spasm in right neck/trapezius shoulder muscles and upper back also causing or contributing to patient's perceived pain and discomfort in right upper extremity. Departure Disposition: 01 HOME / SELF CARE / HOMELESS Impression: Primary Impression: Bee sting Qualified Codes: T63.441A - Toxic effect of venom of bees, accidental (unintentional), initial encounter Additional Impression: Muscle Spasm Condition: Improved Discharge Instructions: Insect Bite, Adult, [id number] Additional Instructions: Patient was given in the ED today 30 mg Toradol IM, Decadron 10 mg IM, Benadryl 25 mg IM, baclofen 10 mg p.o.. Patient will follow up with primary care in 1-5 days if no better as needed sooner. Return to ED with any worsening, concerning or changing symptoms. Shared decision-making utilized with the patient today. Patient will continue Benadryl by mouth as needed. I feel patient may also have muscle spasm in right neck/trapezius shoulder muscles and upper back also causing or contributing to patient's perceived pain and discomfort in right upper extremity. Referrals: NO PRIMARY CARE PROVIDER (PCP) Prescriptions Diphenhydramine Hcl (Benadryl) 25 Mg Capsule 1 CAP PO HS for 30 Days, #30 CAP 0 Refills Prov: THANIA GONZALEZ 02/21/25 Methocarbamol (Methocarbamol) 750 Mg Tablet 1 TAB PO Q8H for 30 Days, #90 TAB 0 Refills Prov: THANIA GONZALEZ 02/21/25 Signature Scribe Signature: No scribe Attestation: No scribe THANIA GONZALEZ February 21, 2025 11:11
[2025-02-21] MEDS ORDERED: DIPH25CA83 PO (11:16)
[2025-02-21] MEDS ORDERED: METH-798 PO (11:16)
[2025-02-21] MEDS: diphenhydrAMINE 50 mg/ml inj IM STA (11:33)
[2025-02-21] MEDS: ketorolac trometh 30MG/ML vial 30 MG/ML VIAL IV ONE (11:35)
[2025-02-21] MEDS: ketorolac trometh 30MG/ML vial 30 MG/ML VIAL IM ONE (11:51)
[2025-02-21] MEDS: dexamethasone sod phosphate 10mg/ml inj IM STA (11:52)
[2025-02-21] MEDS: diphenhydrAMINE 25mg capsule PO ONE ×2 (11:52→11:53)
[2025-02-21] MEDS: baclofen 10mg tablet PO STA (11:53)
[2025-02-21 12:07] VITALS: BP 121/79; PULSE 93; RESP 18; TEMP 98.1; O2SAT 100
== END 2025-02-21 12:10 | disposition home or self-care (01) ==
LOC: ER 10:44
DX: T63.441A Toxic effect of venom of bees, accidental (unintentional), initial encounter (principal); I10 Essential (primary) hypertension; I48.91 Unspecified atrial fibrillation; J45.909 Unspecified asthma, uncomplicated; G43.909 Migraine, unspecified, not intractable, without status migrainosus; Z86.73 Personal history of transient ischemic attack (TIA), and cerebral infarction without residual deficits; Z88.2 Allergy status to sulfonamides; Z88.5 Allergy status to narcotic agent; Z88.6 Allergy status to analgesic agent; Z88.8 Allergy status to other drugs, medicaments and biological substances; X58.XXXA Exposure to other specified factors, initial encounter; Y93.89 Activity, other specified; Y92.89 Other specified places as the place of occurrence of the external cause; Y99.8 Other external cause status
CPT/HCPCS: 96372; 99284; J1100; J1885; Q0163

== ENCOUNTER 2025-02-22 09:48 | Outpatient (CLI) | payer MEDICARE, MEDICAID ==
[~2025-02-22 09:48] MED LIST changes: +DIPH25CA83 PO; +METH-798 PO
--- NOTE | 2025-02-22 12:08 | RADIOLOGY REPORT ---
EXAM: DI SHOULDER, COMPLETE (MIN 2 VWS) CLINICAL INDICATION: LEFT SHOULDER PAIN TECHNIQUE: DI SHOULDER, COMPLETE (MIN 2 VWS) Comparison: None FINDINGS/IMPRESSION: There is no evidence of acute fracture or dislocation. The visualized joint space is well maintained. The alignment is anatomical. There is no radiopaque foreign body.
== END 2025-02-23 23:59 | disposition home or self-care (01) ==
LOC: RAD 09:48
PROVIDERS: ATTEND Physician Assistant
DX: M25.512 Pain in left shoulder (principal)
CPT/HCPCS: 73030

== ENCOUNTER 2025-06-09 17:10 | Emergency (ER) | payer MEDICARE, MEDICAID ==
[~2025-06-09] VITALS: Ht 167.6 cm; Wt 81.9 kg
[2025-06-09 17:32] VITALS: BP 121/78; PULSE 88; RESP 18; O2SAT 100
[2025-06-09 17:57] LABS: LEUKOCYTE ESTERASE ,URINE NEGATIVE (Neg); NITRITES, URINE NEGATIVE (Neg); OCCULT BLOOD,URINE NEGATIVE (Neg)
[2025-06-09 17:59] LABS: UA COLLECTION TYPE CLN CATCH MIDSTREAM
--- NOTE | 2025-06-09 18:43 | Physician Documentation ---
History of Present Illness Chief Complaint: Flank Pain Stated Complaint: LT FLANK PAIN Time Seen by MD: 18:42 Primary Medical Doctor: [facility] HPI 60-year-old female presenting with left-sided back pain She tells me that for the past 4 weeks she has been having intermittent pain in her left upper back. She states it is located around the left shoulder blade and left posterior chest wall. It is worse with movement and palpation. It is worse at night when she tries to sleep. She has been taking Tylenol with partial relief. She also reports dark urine with a intermittent foul smell. No fevers or chills. No nausea or vomiting. No abdominal pain. No diarrhea. 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 Medication Reconciliation Allergies: Coded Allergies: prochlorperazine (Verified Allergy, Mild, TACHYCARDIA, 02/21/25) Sulfa (Sulfonamide Antibiotics) (Verified Allergy, Unknown, 02/21/25) hydrocodone (Verified Allergy, Unknown, 02/21/25) naproxen (Verified Allergy, Unknown, 02/21/25) Scheduled Baclofen (Baclofen), 1 TAB PO TID, (Reported) Buspirone HCl (Buspirone HCl), 1 TAB PO DAILY, (Reported) Cyclosporine (Restasis), 1 DROP EACHEYE BID, (Reported) Diphenhydramine Hcl (Benadryl), 1 CAP PO HS Famotidine (Famotidine), 1 TAB PO BID, (Reported) Gabapentin (Gabapentin), 1 CAP PO HS, (Reported) Guaifenesin (Mucinex), 1 TAB PO Q12H Lisinopril (Lisinopril), 2.5 MG PO DAILY Methocarbamol (Methocarbamol), 1 TAB PO Q8H Metoprolol Tartrate (Metoprolol Tartrate), 1 TAB PO BID, (Reported) Riboflavin (Vitamin B-2), 100 MG PO DAILY, (Reported) Rivaroxaban (Xarelto), 1 TAB PO DAILY, (Reported) Topiramate (Topamax), 1.5 TAB PO QAM, (Reported) Scheduled PRN Albuterol Sulfate (Ventolin Hfa), 2 PUFFS INH Q4HPRN PRN for wheezing Fluticasone Propionate (Fluticasone Propionate), 1-2 SPRAYS BOTHNARES BID PRN for allergies, (Reported) Ipratropium/Albuterol Sulfate (IPRAT-ALBUT 0.5-3(2.5) MG/3 ML nebule), 1 VIAL NEB Q8H PRN for SOB or wheezing ONDANSETRON ODT 4mg tablet (Ondansetron Odt), 1 TAB PO Q6H PRN PRN for nausea/vomiting Miscellaneous Medications Albuterol Sulfate (Ventolin Hfa), 2 PUFFS INH, (Reported) Past Medical History Past Medical History: CVA/TIA/Stroke, Headache, Migraine, Vertigo, Atrial Fibrillation, Hypertension, Asthma, Anemia, Kidney Stones, Chronic Pain, Chronic Back Pain Past Surgical History: orthopedic surgeries, other Patient History: FH: heart disease FATHER, , Age: 60 years and older, Cause: Cancer MOTHER, , Age: 50's - 60, Cause: Heart disease Other Past Family History: UNKNOWN Alcohol Use: None Drug Use: none Lives with: Family Lives In: Home Occupation: employed Review of Systems Constitutional: Denies: fever Gastrointestinal: Denies: abdominal pain Musculoskeletal: Reports: back pain Physical Exam Vital Signs: Temperature: 98.6, Source: Oral, Heart Rate: 88, Respiratory Rate: 18, BP: 121/78, Pulse Oximetry: 100, Weight: 81.900 Oxygen Flow Rate: 0 Physical Exam General: This is a pleasant and overall well-appearing middle-aged female sitting quietly in bed HEENT: Atraumatic, oropharynx is moist Heart: Regular rate and rhythm, normal-appearing peripheral perfusion Lungs: normal work of breathing, normal oxygen saturation on room air Abdomen: Soft, nondistended, nontender all quadrants including in the left upper quadrant and left lower quadrant Back: The patient has reproducible tenderness on palpation of the muscles of the left upper back as well as 1 focal location in the left lateral chest wall between 2 ribs. No rashes or lesions at the sites. The patient does reproduce her reported pain. Extremities: Warm and well-perfused, no edema Neuro: Alert and oriented Psychiatric: Calm and cooperative with exam Progress Results/Orders Results/Orders Vital Signs 06/09/25 17:32 Temp 98.6 Pulse 88 Resp 18 B/P (MAP) 121/78 Pulse Ox 100 O2 Flow Rate 0 Laboratory Tests Test 06/09/25 17:45 Urine Specimen Description Cln catch midstream Urine Color Yellow Urine Clarity Clear Urine pH 6.0 Urine Specific [place] >=1.030 Urine Protein Negative Urine Glucose (UA) Negative Urine Ketones Trace H Urine Occult Blood Negative Urine Nitrite Negative Urine Bilirubin Small Urine Urobilinogen 0.2 Urine Leukocyte Esterase Negative Urine Culture Indicated Not ind Volume Urine Centrifuged 10 ml Urine Comment Medical Decision Making Additional Comments Differential includes muscle strain or spasm, UTI, pyelonephritis, gastritis, PE, pneumonia Assessment The patient presents with left-sided back pain and chest wall pain. Per her history and exam this all appears consistent with a muscle strain or spasm. She does not have a urinary tract infection and I doubt pyelonephritis. She is on anticoagulation so I doubt PE. She has no respiratory symptoms to suggest a dangerous lung process. I did offer to perform a trigger point injection but she declined. She already has a muscle relaxant. She did accept a lidocaine patch. I do not feel that any further workup or testing is indicated today. She will be discharged with symptomatic treatment at home care instructions, with outpatient follow up. Departure Time of Disposition: 18:55 Disposition: 01 HOME / SELF CARE / HOMELESS Impression: Primary Impression: Back strain of thoracic region Condition: Stable Discharge Instructions: Thoracic Strain, Thoracic Strain Rehab-SportsMed Referrals: NO PRIMARY CARE PROVIDER (PCP) Education Educated: Patient Educated regarding: diagnosis, treatment, need for follow up Signature Scribe Signature: na Attestation: BEAU Huizar MD Jun 09, 2025 18:43
[2025-06-09 19:16] VITALS: TEMP 98.6
== END 2025-06-09 19:15 | disposition home or self-care (01) ==
LOC: ER 17:11
DX: S29.012A Strain of muscle and tendon of back wall of thorax, initial encounter (principal); S39.012A Strain of muscle, fascia and tendon of lower back, initial encounter; I10 Essential (primary) hypertension; I48.91 Unspecified atrial fibrillation; J45.909 Unspecified asthma, uncomplicated; Z86.73 Personal history of transient ischemic attack (TIA), and cerebral infarction without residual deficits; Z88.2 Allergy status to sulfonamides; Z88.5 Allergy status to narcotic agent; Z88.6 Allergy status to analgesic agent; Z88.8 Allergy status to other drugs, medicaments and biological substances; X58.XXXA Exposure to other specified factors, initial encounter; Y93.89 Activity, other specified; Y92.89 Other specified places as the place of occurrence of the external cause; Y99.8 Other external cause status
CPT/HCPCS: 81003; 99283

== ENCOUNTER 2025-08-29 14:50 | Emergency (ER) | payer MEDICARE, MEDICAID ==
[~2025-08-29] VITALS: Ht 167.6 cm; Wt 80.9 kg
[~2025-08-29 14:50] MED LIST changes: +CYCL-1 PO
[2025-08-29 14:55] VITALS: TEMP 97.4
--- NOTE | 2025-08-29 15:07 | Physician Documentation ---
History of Present Illness ~ Chief Complaint: Dizziness Stated Complaint: UNABLE TO WALK Time Seen by MD: 15:38 Primary Medical Doctor: [facility] HPI Very pleasant 60-year-old female that presents to the emergency department accompanied by a friend and co-worker. She reports that she has been feeling progressively weak over the last 4 days. She has a little bit of nausea vomiting no diarrhea possible fever and chills. Patient reports that she was just switched patient new medications by her impregnating helper. She reports since that time she has become progressively dizzy and lethargic. Patient denies any unilateral weaknesses disabilities cognitive disabilities at this time friend and co-worker confirmed that she has alert and oriented and responding normally but appears more lethargic than normal not wanting to ambulate in complaining of being dizzy. Medication Reconciliation Allergies: Coded Allergies: prochlorperazine (Verified Allergy, Mild, TACHYCARDIA, 08/29/25) Sulfa (Sulfonamide Antibiotics) (Verified Allergy, Unknown, 08/29/25) hydrocodone (Verified Allergy, Unknown, 08/29/25) naproxen (Verified Allergy, Unknown, 08/29/25) Scheduled Baclofen (Baclofen), 1 TAB PO TID, (Reported) Buspirone HCl (Buspirone HCl), 1 TAB PO DAILY, (Reported) Cyclobenzaprine* (Cyclobenzaprine*), 1 TAB PO BID Cyclosporine (Restasis), 1 DROP EACHEYE BID, (Reported) Diltiazem HCl (Diltiazem ER), 1 CAP PO DAILY Diphenhydramine Hcl (Benadryl), 1 CAP PO HS Famotidine (Famotidine), 1 TAB PO BID, (Reported) Gabapentin (Gabapentin), 1 CAP PO HS, (Reported) Guaifenesin (Mucinex), 1 TAB PO Q12H Lisinopril (Lisinopril), 2.5 MG PO DAILY Methocarbamol (Methocarbamol), 1 TAB PO Q8H Metoprolol Tartrate (Metoprolol Tartrate), 1 TAB PO BID, (Reported) Riboflavin (Vitamin B-2), 100 MG PO DAILY, (Reported) Rivaroxaban (Xarelto), 1 TAB PO DAILY, (Reported) Topiramate (Topamax), 1.5 TAB PO QAM, (Reported) Scheduled PRN Albuterol Sulfate (Ventolin Hfa), 2 PUFFS INH Q4HPRN PRN for wheezing Fluticasone Propionate (Fluticasone Propionate), 1-2 SPRAYS BOTHNARES BID PRN for allergies, (Reported) Ipratropium/Albuterol Sulfate (IPRAT-ALBUT 0.5-3(2.5) MG/3 ML nebule), 1 VIAL NEB Q8H PRN for SOB or wheezing Meclizine HCl (Meclizine HCl), 1 TABLET PO TID PRN PRN for dizziness/vertigo ONDANSETRON ODT 4mg tablet (Ondansetron Odt), 1 TAB PO Q6H PRN PRN for nausea/vomiting Miscellaneous Medications Albuterol Sulfate (Ventolin Hfa), 2 PUFFS INH, (Reported) Past Medical History Past Medical History: CVA/TIA/Stroke, Headache, Migraine, Vertigo, Atrial Fibrillation, Hypertension, Asthma, Anemia, Kidney Stones, Chronic Pain, Chronic Back Pain Past Surgical History: orthopedic surgeries, other Patient History: FH: heart disease FATHER, , Age: 60 years and older, Cause: Cancer MOTHER, , Age: 50's - 60, Cause: Heart disease Other Past Family History: UNKNOWN Alcohol Use: None Drug Use: none Lives with: Family Lives In: Home Occupation: employed Review of Systems All Other Systems at this time: Reviewed and Negative Physical Exam Vital Signs: Temperature: 97.4, Source: Temporal, Heart Rate: 96, Respiratory Rate: 18, BP: 126/87, Pulse Oximetry: 99, Weight: 80.910 Oxygen Flow Rate: 0 Physical Exam VITALS: Reviewed and as above. GENERAL: Alert, no apparent distress. HEENT: Normocephalic, atraumatic, PERRL, EOMI, dry mucosa, no erythema RESPIRATORY: Lungs clear, normal breath sounds, no respiratory distress. CHEST: No accessory muscle use, no retractions CV: Regular rate, rhythm, no edema, no murmur, No: JVD GI: Soft, non-tender, bowels sounds present, no rebound, guarding, or rigidity BACK: No CVA tenderness, or swelling MUSCULOSKELETAL: No deformities, no edema SKIN: Warm and dry, no rash NEURO: Oriented x4, No motor or sensory deficit PSYCH: Normal mood and affect, no agitation Progress Results/Orders Results/Orders Completed Orders - OHLFSBRISEYDA MD Urinalysis, Cult If Indicated (08/29/25 15:59) Meclizine Tablets (Antivert Tablet) (08/29/25 16:10) Vital Signs 08/29/25 08/29/25 08/29/25 08/29/25 14:55 15:46 17:17 18:06 Temp 97.4 Pulse 96 99 103 97 Resp 18 19 16 18 B/P (MAP) 126/87 152/82 (105) 114/84 (94) 106/73 (84) Pulse Ox 99 100 100 99 O2 Flow Rate 0 0 0 0 Laboratory Tests Test 08/29/25 15:08 08/29/25 17:02 08/29/25 17:08 08/29/25 18:02 White Blood Count 5.8 Red Blood Count 5.57 Hemoglobin 10.7 L Hematocrit 33.7 L Mean Corpuscular Volume 60.5 L Mean Corpuscular Hemoglobin 19.3 L Mean Corpuscular Hemoglobin Concent 31.9 L Red Cell Distribution Width 16.1 H Platelet Count 141 Mean Platelet Volume 8.6 Neutrophils (%) (Auto) 54.6 Lymphocytes (%) (Auto) 36.0 Monocytes (%) (Auto) 5.8 Eosinophils (%) (Auto) 3.0 Basophils (%) (Auto) 0.6 Neutrophils # (Auto) 3.2 Lymphocytes # (Auto) 2.1 Monocytes # (Auto) 0.3 Eosinophils # (Auto) 0.2 Basophils # (Auto) 0.0 CBC Comment Platelet Estimate Decreased Red Blood Cell Morphology Perf Poikilocytosis 1+ Basophilic Stippling Anisocytosis 3+ Microcytosis 1+ Macrocytosis 1+ Target Cells Few Elliptocytes 1+ Sodium Level 139 Potassium Level 3.8 Chloride Level 106 Carbon Dioxide Level 26.3 Anion Gap 7 L Blood Urea Nitrogen 18 Creatinine 0.72 Estimated GFR/1.73 m2 82 BUN/Creatinine Ratio 25.0 H Glucose Level 111 H Calcium Level 8.5 Troponin I High Sensitivity 4 5 5 Pro-B-Type Natriuretic Peptide 532 H Albumin 4.1 Chemistry Comments Urine Specimen Description Other Urine Color Straw Urine Clarity Clear Urine pH 6.5 Urine Specific [place] <=1.005 Urine Protein Negative Urine Glucose (UA) Negative Urine Ketones Negative Urine Occult Blood Negative Urine Nitrite Negative Urine Bilirubin Negative Urine Urobilinogen 0.2 Urine Leukocyte Esterase Negative Urine Culture Indicated Not ind Volume Urine Centrifuged 10 ml Urine Comment Troponin I High Sens Percent Delta 25 0 Troponin I Hi Sens Absolute Change 1 0 Medical Decision Making Additional information obtaine: old records, tobacco shaker Findings Atrial fibrillation rate of 114 on the EKG with a normal axis and low voltages the patient additionally has nonspecific ST abnormalities the patient has no ST depression or ST elevation the patient's EKG was interpreted as AFib and it was interpreted as an abnormal EKG time of interpretation was 15 10, the patient presented with dizziness possibly related to recent change in her medication to metoprolol or additionally to potentially to vertigo, the patient has a benign neurologic exam there was no focal weakness the patient does have some end gaze horizontal nystagmus the patient states she just started metoprolol in his made her feel weak and she does not want to take the metoprolol anymore for her atrial fibrillation, the patient was atrial fibrillation she was hemodynamically stable the patient's has a prescription still for the diltiazem, the patient will be placed back on the diltiazem she was given a dose of meclizine here with some improvement of her symptoms labs were reviewed prior hospitalizations has been reviewed. The patient will be discharged on meclizine. Differential Dx:Considerations: Include: CVA, dehydration, hypotension, labyrinthitis, Meniere's disease, vertigo central, vertigo peripheral, vestibular neuronitis Departure Time of Disposition: 17:53 Disposition: 01 HOME / SELF CARE / HOMELESS Impression: Primary Impression: Dizziness Discharge Instructions: Dizziness Additional Instructions: Stop taking the metoprolol. You can restart your diltiazem. I have represcribed the diltiazem. Use meclizine as needed for dizziness. Follow up with your healthcare provider and your impregnating helper as soon as possible. Return for worsening of your symptoms. No driving your motor vehicle for the next three days. And no driving if your dizziness continues. Referrals: NO PRIMARY CARE PROVIDER (PCP) Prescriptions Diltiazem HCl (Diltiazem ER) 240 Mg Cap.er.deg 1 CAP PO DAILY, #30 TAB Prov: OHLBRISEYDA MOBLEY MD 08/29/25 Meclizine HCl (Meclizine HCl) 25 Mg Tablet 1 TABLET PO TID PRN PRN for dizziness/vertigo, #20 TABLET Prov: BRISEYDA DENNEY MD 08/29/25 Signature Scribe Signature: No scribe Attestation: The note accurately reflects work and decisions made by me.Briseyda Denney MD 08/30/25 07:16 JOSE LOYD Aug 29, 2025 15:07 BRISEYDA DENNEY MD Aug 29, 2025 15:58
--- NOTE | 2025-08-29 15:12 | ELECTROCARDIOGRAPH REPORT ---
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 KRYS Hale Measurements Intervals [place] Rate: 114 P: 0 [place]: 0 QRS: 64 QRSD: 76 T: 44 QT: 392 QTc: 540 Interpretive Statements Atrial fibrillation Low voltage, precordial leads Prolonged QT interval Electronically Signed On 08-31-2025 18:02:[address] KRYS Hale Please click the below link to view image of tracing.
[2025-08-29 15:14] LABS: MEAN PLATELET VOLUME 8.6 FL (7.4-10.4); RED CELL DISTRIBUTION WIDTH 16.1 % (11.5-14.5)
--- NOTE | 2025-08-29 15:38 | RADIOLOGY REPORT ---
CHEST RADIOGRAPH Indication: CP Technique: Single frontal view of the chest was obtained Comparison: DI CHEST,SINGLE VIEW on DOS: 07/19/25, DI CHEST,SINGLE VIEW on DOS: 01/24/25, DI CHEST,SINGLE VIEW on DOS: 07/15/23 FINDINGS: Lines and Tubes: None Lungs: No focal consolidation. Pleura: No effusion. No pneumothorax. Cardiomediastinal contours: Mild cardiomegaly Bones: No acute osseous abnormality. Partially visualized cervical fixation hardware. IMPRESSION: No acute cardiopulmonary disease.
[2025-08-29 15:39] LABS: ELLIPTOCYTES 1+
[2025-08-29 15:44] LABS: CREATININE 0.72 MG/DL (0.40-0.90); PRO BRAIN NATRIURETIC PEPTIDE 532 PG/ML (0-125); TOTAL CARBON DIOXIDE 26.3 MMOL/L (24-32); eCRCL 77 ML/MIN; eGFR 82 ML/MIN
[2025-08-29 17:40] LABS: LEUKOCYTE ESTERASE ,URINE NEGATIVE (Neg); NITRITES, URINE NEGATIVE (Neg); OCCULT BLOOD,URINE NEGATIVE (Neg)
[2025-08-29 17:47] LABS: UA COLLECTION TYPE OTHER
[2025-08-29] MEDS ORDERED: MECL-302 PO (17:50)
[2025-08-29] MEDS ORDERED: DILT-117 PO ×2 (17:52)
[2025-08-29 18:06] VITALS: BP 106/73; PULSE 97; RESP 18; O2SAT 99
[2025-08-30 12:14] LABS: PLATELET ESTIMATE NORMAL
== END 2025-08-29 18:23 | disposition home or self-care (01) ==
LOC: ER 14:51
DX: R42 Dizziness and giddiness (principal); R06.02 Shortness of breath; I10 Essential (primary) hypertension; G43.909 Migraine, unspecified, not intractable, without status migrainosus; I48.91 Unspecified atrial fibrillation; J45.909 Unspecified asthma, uncomplicated; Z86.73 Personal history of transient ischemic attack (TIA), and cerebral infarction without residual deficits; Z88.2 Allergy status to sulfonamides; Z88.5 Allergy status to narcotic agent; Z88.6 Allergy status to analgesic agent; Z88.8 Allergy status to other drugs, medicaments and biological substances
CPT/HCPCS: 36415; 71045; 80048; 81003; 83880; 84484; 85025; 93005; 99285; J8597; 85008

== ENCOUNTER 2025-10-07 08:38 | Emergency (ER) | payer MEDICARE, OTHER ==
[~2025-10-07] VITALS: Ht 167.6 cm; Wt 79.4 kg
[~2025-10-07 08:38] MED LIST changes: +DILT-117 PO; +MECL-302 PO
[2025-10-07 08:46] VITALS: TEMP 98.9
[2025-10-07] MEDS: dexamethasone sod phosphate 10mg/ml inj IM STA (11:03)
--- NOTE | 2025-10-07 11:03 | Physician Documentation ---
History of Present Illness ~ Chief Complaint: Rash Stated Complaint: FACE EDEMA Time Seen by MD: 10:50 OK to notify your PCP?: Yes Primary Medical Doctor: [facility] Source: patient Mode of Arrival: POV Exam Limitations: no limitations HPI This is a 60-year-old female who comes in complaining of itch and rash that has had for the past two days. She denies any new food or medications. She denies happened just prior. She states the rash has been changing positions and yesterday her left eye was slightly swollen however that has resolved. She den ies tightness in the throat or difficulty swallowing. She denies shortness of breath or wheezing. Medication Reconciliation Allergies: Coded Allergies: prochlorperazine (Verified Allergy, Mild, TACHYCARDIA, 08/29/25) Sulfa (Sulfonamide Antibiotics) (Verified Allergy, Unknown, 08/29/25) hydrocodone (Verified Allergy, Unknown, 08/29/25) naproxen (Verified Allergy, Unknown, 08/29/25) Scheduled Baclofen (Baclofen), 1 TAB PO TID, (Reported) Buspirone HCl (Buspirone HCl), 1 TAB PO DAILY, (Reported) Cyclobenzaprine* (Cyclobenzaprine*), 1 TAB PO BID Cyclosporine (Restasis), 1 DROP EACHEYE BID, (Reported) Diltiazem HCl (Diltiazem ER), 1 CAP PO DAILY Diphenhydramine Hcl (Benadryl), 1 CAP PO HS Famotidine (Famotidine), 1 TAB PO BID, (Reported) Gabapentin (Gabapentin), 1 CAP PO HS, (Reported) Guaifenesin (Mucinex), 1 TAB PO Q12H Lisinopril (Lisinopril), 2.5 MG PO DAILY Methocarbamol (Methocarbamol), 1 TAB PO Q8H Metoprolol Tartrate (Metoprolol Tartrate), 1 TAB PO BID, (Reported) Riboflavin (Vitamin B-2), 100 MG PO DAILY, (Reported) Rivaroxaban (Xarelto), 1 TAB PO DAILY, (Reported) Topiramate (Topamax), 1.5 TAB PO QAM, (Reported) Scheduled PRN Albuterol Sulfate (Ventolin Hfa), 2 PUFFS INH Q4HPRN PRN for wheezing Fluticasone Propionate (Fluticasone Propionate), 1-2 SPRAYS BOTHNARES BID PRN for allergies, (Reported) Ipratropium/Albuterol Sulfate (IPRAT-ALBUT 0.5-3(2.5) MG/3 ML nebule), 1 VIAL NEB Q8H PRN for SOB or wheezing Meclizine HCl (Meclizine HCl), 1 TABLET PO TID PRN PRN for dizziness/vertigo ONDANSETRON ODT 4mg tablet (Ondansetron Odt), 1 TAB PO Q6H PRN PRN for nausea/vomiting Miscellaneous Medications Albuterol Sulfate (Ventolin Hfa), 2 PUFFS INH, (Reported) Past Medical History Past Medical History: CVA/TIA/Stroke, Headache, Migraine, Vertigo, Atrial Fibrillation, Hypertension, Asthma, Anemia, Kidney Stones, Chronic Pain, Chronic Back Pain Past Surgical History: orthopedic surgeries, other Patient History: FH: heart disease FATHER, , Age: 60 years and older, Cause: Cancer MOTHER, , Age: 50's - 60, Cause: Heart disease Other Past Family History: UNKNOWN Alcohol Use: None Drug Use: none Lives with: Family Lives In: Home Occupation: employed Physical Exam Vital Signs: Temperature: 98.9, Source: Temporal, Heart Rate: 96, BP: 142/83, Weight: 79.400 Pulse Oximetry Reflects: adequate oxygenation General Appearance: alert, WD/WN, no apparent distress Eyes, Ears: normal ENT inspection Tongue: normal inspection Buccal Mucosa: normal inspection Palate: normal inspection Pharynx: normal inspection Neck: non-tender Respiratory: lungs clear, normal breath sounds, no respiratory distress Skin Patient has a scant patchy erythematous indurated rash. Mostly up with the upper trunk and extremities. No specific pattern. No discharge Neurologic: oriented x4 Psychiatric: normal mood/affect Progress Results/Orders Results/Orders Vital Signs 10/07/25 08:46 Temp 98.9 Pulse 96 B/P (MAP) 142/83 Medical Decision Making Additional information obtaine: N/A Findings The rash and the patient has symptoms. Consistent with a urticaria. I gave the patient Decadron 10 mg IM here and we will continue with the prednisolone a 50 mg once a day for the next four days. I will also prescribe Atarax 25 mg be taking Q 68 hours p.r.n. itch. Follow up with the primary care physician for recheck in the next one or two days. No signs of anaphylaxis Differential Dx:Considerations: Include: Abscess, AIDS/HIV, Anthrax (cutaneous), Atopic dermatitis, Candidiasis, Contact dermatitis, Drug reaction, Erythema multiforme, Erysipelas, Gangrene, Herpes zoster, Herpes simplex, Hidradenitis suppurativa, Impetigo, Intertrigo, Lymes disease, Molluscum contagiosum, Osteomyelitis, Pediculosis, Pityriasis rosea, Psoriaisis, RMSF, Rosacea, Scabies, Scarlet fever, Tinea, Urticaria, Varicella, Viral exanthema, Other Additional Comment Nonspecific rash. Allergic reaction. Idiopathic urticaria. Contact dermatitis. Angioedema Departure Disposition: HOME / SELF CARE / HOMELESS Impression: Primary Impression: Urticaria Condition: Stable Discharge Instructions: Marilu Additional Instructions: Take the medications as prescribed. Follow up with the primary care physician for recheck in the coming week and return to the ER for any worsening or concerning symptoms Referrals: NO PRIMARY CARE PROVIDER (PCP) Prescriptions Hydroxyzine Hcl* (Atarax*) 25 Mg Tablet 1 TAB PO Q6H PRN for ITCHING, #20 TAB Prov: JAVIER JOHNSON 10/07/25 Prednisone (Prednisone) 50 Mg Tablet 1 TAB PO DAILY for 4 Days, #4 TAB 0 Refills Prov: JAVIER JOHNSON 10/07/25 Signature Scribe Signature: No splint Attestation: The note accurately reflects work and decisions made by me.Javier DAO 10/07/25 11:08 JAVIER JOHNSON Oct 07, 2025 11:03
[2025-10-07] MEDS ORDERED: HYDR-3686 PO (11:07)
[2025-10-07] MEDS ORDERED: PRED50TA PO (11:07)
[2025-10-07 11:21] VITALS: BP 135/88; PULSE 82; RESP 18; O2SAT 98
== END 2025-10-07 11:23 | disposition home or self-care (01) ==
LOC: ER 08:39
DX: L50.9 Urticaria, unspecified (principal); I48.91 Unspecified atrial fibrillation; I10 Essential (primary) hypertension; G89.29 Other chronic pain; D64.9 Anemia, unspecified; G43.909 Migraine, unspecified, not intractable, without status migrainosus; Z86.73 Personal history of transient ischemic attack (TIA), and cerebral infarction without residual deficits; Z87.442 Personal history of urinary calculi; Z88.2 Allergy status to sulfonamides; Z88.5 Allergy status to narcotic agent; Z88.8 Allergy status to other drugs, medicaments and biological substances; Z79.899 Other long term (current) drug therapy; Z98.890 Other specified postprocedural states
CPT/HCPCS: 96372; 99283; J1100